=== PATIENT | female | born 1965 | race Caucasian/White ===

== ENCOUNTER 2016-12-19 08:31 | Day surgery (SDC) | payer BC ==
[~2016-12-19 08:31] MED LIST: Lactated Ringers 1,000 ML IV SCH; Lidocaine 2% 5 ML SDV ONE; Midazolam 1 MG/ML 2 ML SDV ONE; Ondansetron 4 MG/2 ML SDV ONE; Propofol 200 MG/20 ML SDV ONE; fentaNYL 100 MCG/2 ML SDV ONE
[2016-12-19] MEDS ORDERED: Propofol 200 MG/20 ML SDV ONE ×2 (09:34→10:28)
--- NOTE | 2016-12-19 09:35 | PCM.PREANE ---
Preanesthetic Assessment - Anesthesia/Transfusion/Family Hx Anesthesia History: Prior Anesthesia Without Reaction Family History of Anesthesia Reaction: No Transfusion History: No Prior Transfusion(s) Intubation History: Unknown - Review of Systems General: No Symptoms Pulmonary: No Symptoms Cardiovascular: No Symptoms Gastrointestinal: No Symptoms Neurological: No Symptoms Other: Reports: None - Physical Assessment Height: 1.75 m Weight: 104.326 kg ASA Class: 2 Mental Status: Alert & Oriented x3 Airway Class: Mallampati = 2 Dentition: Reports: Dentures (upper), Missing Tooth/Teeth (only 5 teeth left in lower jaw) Thyro-Mental Finger Breadths: 3 Mouth Opening Finger Breadths: 3 ROM/Head Extension: Full Lungs: Clear to Auscultation, Normal Respiratory Effort Cardiovascular: Regular Rate, Regular Rhythm - Allergies Allergies/Adverse Reactions: Allergies Allergy/AdvReac Type Severity Reaction Status Date / Time Penicillins Allergy Hives Verified 11/04/14 09:50 - Blood Blood Available: No - Anesthesia Plan Pre-Op Medication Ordered: None - Acknowledgements Anesthesia Type Planned: MAC Pt an Appropriate Candidate for the Planned Anesthesia: Yes Alternatives and Risks of Anesthesia Discussed w Pt/Guardian: Yes Pt/Guardian Understands and Agrees with Anesthesia Plan: Yes PreAnesthesia Questionnaire HEENT History: Other HEENT History: top denture Gastrointestinal History: Reports: Diverticulosis (with h/o diverticulitis) Genitourinary History: Reports: Renal Calculus 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: Musculoskeletal History: Reports: Arthritis (back, hips and now starting on hands), Back Pain, Chronic Neurological History: Reports: Concussion Psychiatric History: Reports: Anxiety Endocrine/Metabolic History: Reports: Obesity/BMI 30+ - Past Surgical History Head Surgeries/Procedures: Reports: None HEENT Surgical History: Reports: Tonsillectomy Female Surgical History: Reports: Hysterectomy, Tubal Ligation - SUBSTANCE USE Smoking Status *Q: Current Every Day Smoker (1/2 ppd now) Tobacco Use Within Last Twelve Months: Cigarettes Recreational Drug Use History: No - HOME MEDS Home Medications: Home Meds Chrom Digna/Brindal Kemp [Garcinia Cambogia Tablet] 3 tab PO DAILY 12/12/16 [ History] Naproxen Sodium [Aleve] 2 tab PO ASDIRECTED PRN 12/12/16 [History] - CURRENT (IN HOUSE) MEDS Current Meds: Current Medications Lactated Ringer's (Ringers, Lactated) 1,000 mls @ 125 mls/hr IV ASDIRECTED JD Discontinued Medications Fentanyl (Sublimaze) Confirm Administered Dose 200 mcg .ROUTE .STK-MED ONE Stop: 12/19/16 07:00 Lidocaine (Xylocaine-Mpf 2%) Confirm Administered Dose 5 ml .ROUTE .STK-MED ONE Stop: 12/19/16 07:00 Midazolam HCl (Versed 1 Mg/Ml) Confirm Administered Dose 2 mg .ROUTE .STK-MED ONE Stop: 12/19/16 07:00 Ondansetron HCl (Zofran) Confirm Administered Dose 4 mg .ROUTE .STK-MED ONE Stop: 12/19/16 07:00 Propofol (Diprivan 20 Ml) Confirm Administered Dose 200 mg .ROUTE .STK-MED ONE Stop: 12/19/16 07:00
[2016-12-19] MEDS ORDERED: Lidocaine 1% 20 ML MDV ONE (10:03)
--- NOTE | 2016-12-19 10:54 | PCM.OPNOTE ---
- General Post-Op/Procedure Note Date of Surgery/Procedure: 12/19/16 Operative Procedure(s): Excision 2 cm left anterior chest wall mass with layered 4 cm closure Pre Op Diagnosis: Chest wall mass Post-Op Diagnosis: Same Anesthesia Technique: Local, MAC (ASA II) Primary Surgeon: Phan Hurst Hvac Manager: Darlin Morales Condition: Good Free Text/Narrative:: Dictation [id number]
[2016-12-19] MEDS ORDERED: Lactated Ringers 1,000 ML IV SCH (11:00)
[2016-12-19] MEDS: fentaNYL 100 MCG/2 ML SDV ONE ×2 (11:05→11:10)
--- NOTE | 2016-12-19 11:26 | PCM.POSTAN ---
POST ANESTHESIA ASSESSMENT - MENTAL STATUS Mental Status: Alert, Oriented - RESPIRATORY Respiratory Status: Respiratory Rate WNL, Airway Patent, O2 Saturation Stable - CARDIOVASCULAR CV Status: Pulse Rate WNL, Blood Pressure Stable - GASTROINTESTINAL GI Status: No Symptoms - PAIN Pain Score: 5 - POST OP HYDRATION Hydration Status: Adequate & Stable - OBSERVATIONS Free Text/Narrative:: no anesthesia problems
--- NOTE | 2016-12-19 13:14 | OR ---
SURGEON: Phan Hurst M.D. DATE OF PROCEDURE: 12/19/2016 OPERATION PERFORMED: Excision of 2 cm left anterior chest wall mass with layered 4 cm closure. 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 PREOPERATIVE DIAGNOSIS: Enlarging left anterior chest wall mass. POSTOPERATIVE DIAGNOSIS: Enlarging left anterior chest wall mass. ESTIMATED BLOOD LOSS: 2 mL. INTRAOPERATIVE FLUID REPLACEMENT: 700 mL of crystalloid. ASA CLASSIFICATION: II. DESCRIPTION OF PROCEDURE: The patient was taken to the operating room and placed on the operating table in the supine position. Time-out was called for appropriate identification of the patient and procedure. Monitored anesthesia care was provided. The left chest was prepped with DuraPrep solution. Sterile drapes were applied. The skin around the mass, which had been marked prior to the patient entering the operating room was now infiltrated with 1% Xylocaine and 0.5% Marcaine solution. Elliptical skin incision was made and then using electrocautery the mass was circumferentially excised. Bleeding sites were electrocoagulated. The total length of the incision was 4 cm. Layered closure was accomplished with subcutaneous layer of 3-0 Polysorb and subcuticular 4-0 Monocryl in a subcuticular fashion. The incision was then Steri-Stripped. Sponge, needle, and instrument counts were all correct. The patient tolerated the procedure well and was taken to recovery room in stable condition. The incision was also dressed with a sterile Tegaderm pad. ROSARIO RHODES /[id number]
[2016-12-19 13:59] VITALS: BP 134/65
== END 2016-12-19 12:00 | disposition home or self-care (01) ==
LOC: MW.SDS 08:31
PROVIDERS: ATTEND Surgery
DX: L72.0 Epidermal cyst (principal); L72.3 Sebaceous cyst; F41.9 Anxiety disorder, unspecified; M19.90 Unspecified osteoarthritis, unspecified site; E66.9 Obesity, unspecified; F17.210 Nicotine dependence, cigarettes, uncomplicated; Z87.440 Personal history of urinary (tract) infections; Z87.442 Personal history of urinary calculi; Z88.0 Allergy status to penicillin; Z79.899 Other long term (current) drug therapy; Z98.51 Tubal ligation status; Z90.710 Acquired absence of both cervix and uterus; Z90.89 Acquired absence of other organs; Z68.32 Body mass index [BMI] 32.0-32.9, adult
CPT/HCPCS: 11402; 12032; 88304; J2250; J3010; J7120; 00470; J2405; J2704

== ENCOUNTER 2017-11-30 14:22 | Emergency (ER) | payer BC ==
[2017-11-30 14:36] VITALS: BP 180/81
[2017-11-30] MEDS ORDERED: Sodium Chloride 0.9% 1,000 ML IV ONE (14:49)
[2017-11-30] MEDS ORDERED: Ondansetron 4 MG/2 ML SDV IVPUSH ONE (14:49)
[2017-11-30] MEDS ORDERED: Sodium Chloride 0.9% 2.5 ML Syringe FLUSH PRN (14:49)
[2017-11-30] MEDS ORDERED: Sodium Chloride 0.9% 10 ML Syringe FLUSH PRN (14:49)
--- NOTE | 2017-11-30 14:49 | EDM.PDOC ---
ED HPI GENERAL MEDICAL PROBLEM - General Chief Complaint: General Stated Complaint: DEHYDRATED Time Seen by Provider: 11/30/17 14:30 Source of Information: Reports: Patient History Limitations: Reports: No Limitations - History of Present Illness INITIAL COMMENTS - FREE TEXT/NARRATIVE: History of present illness: []Patient has a history of lymphadenopathy is currently being worked up and has a scheduled biopsy in 2 days. She states she is unable to keep any food down as it get stuck in her neck level, she is able to keep fluids down however. Patient denies any difficulty breathing or feeling short of breath. She is also complaining of uncontrolled pain. Review of systems: As per history of present illness and below otherwise all systems reviewed and negative. Past medical history: As per history of present illness and as reviewed below otherwise noncontributory. Surgical history: As per history of present illness and as reviewed below otherwise noncontributory. Social history: No reported history of drug or alcohol abuse. Family history: As per history of present illness and as reviewed below otherwise noncontributory. Physical exam: General: Well developed, well nourished in NAD HEENT: Atraumatic, normocephalic, pupils reactive, negative for conjunctival pallor or scleral icterus, mucous membranes moist, throat clear, neck supple, nontender, trachea midline. Visible left supraclavicular lymphadenopathy Lungs: Clear to auscultation, breath sounds equal bilaterally, chest nontender. Upper back tender cloth printing to palpation Heart: S1S2, regular, negative for clicks, rubs, or JVD. Abdomen: Soft, nondistended, nontender. Negative for masses or hepatosplenomegaly. Negative for costovertebral tenderness. Pelvis: Stable nontender. Genitourinary: Deferred. Rectal: Deferred. Extremities: Atraumatic, negative for cords or calf pain. Neurovascular unremarkable. Neuro: Awake, alert, oriented. Cranial nerves II through XII unremarkable. Cerebellum unremarkable. Motor and sensory unremarkable throughout. Exam nonfocal. Skin:warm and dry Diagnostics: None Therapeutics: IV hydration, morphine with improvement in symptoms ED Course: Patient was able to tolerate fluids without difficulty and is comfortable going home Impression: Lymphadenopathy, patient scheduled for outpatient biopsy in 2 days Prescriptions: Tramadol for pain, Prevacid suspension daily Plan: Keep appointment for biopsy.as scheduled. Return to ER immediately if any worsening symptoms occur such as an ability to swallow, difficulty breathing or shortness of breath. Definitive disposition and diagnosis as appropriate pending reevaluation and review of above. headache Pain Score (Numeric/FACES): 10 - Related Data Allergies Allergy/AdvReac Type Severity Reaction Status Date / Time Penicillins Allergy Hives Verified 11/30/17 14:29 Home Meds: Home Meds Acetaminophen [Tylenol Solution 160 MG/5 ML] 15 ml PO Q4HR 11/30/17 [History] Lansoprazole [Prevacid] 30 mg PO DAILY #30 capsule. 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: Musculoskeletal History: Reports: Arthritis, Back Pain, Chronic Neurological History: Reports: Concussion Psychiatric History: Reports: Anxiety Endocrine/Metabolic History: Reports: Obesity/BMI 30+ Hematologic History: Reports: None Immunologic History: Reports: None Oncologic (Cancer) History: Reports: None Dermatologic History: Reports: None - Past Surgical History Head Surgeries/Procedures: Reports: None HEENT Surgical History: Reports: Tonsillectomy Cardiovascular Surgical History: Reports: None Respiratory Surgical History: Reports: None GI Surgical History: Reports: None Female Surgical History: Reports: Hysterectomy, Tubal Ligation Endocrine Surgical History: Reports: None Neurological Surgical History: Reports: None Musculoskeletal Surgical History: Reports: None Oncologic Surgical History: Reports: None Dermatological Surgical History: Reports: None Social & Family History - Family History Family Medical History: Noncontributory - Tobacco Use Smoking Status *Q: Current Every Day Smoker Years of Tobacco use: 40 Packs/Tins Daily: 0.5 - Caffeine Use Caffeine Use: Reports: None - Recreational Drug Use Recreational Drug Use: No ED ROS GENERAL - Review of Systems Review Of Systems: ROS reveals no pertinent complaints other than HPI. ED EXAM, GENERAL - Physical Exam Exam: See Below (See history of present illness) Course - Vital Signs Last Recorded V/S: Last Vital Signs Temp 96.4 F 11/30/17 14:32 Pulse 76 11/30/17 14:32 Resp 18 11/30/17 14:32 BP 180/81 H 11/30/17 14:32 Pulse Ox 94 L 11/30/17 14:32 - Orders/Labs/Meds Orders: Active Orders 24 hr Category Date Time Status Saline Lock Insert [OM.PC] Stat Oth 11/30/17 14:49 Ordered Meds: Medications Discontinued Medications Generic Name Dose Route Start Last Admin Trade Name Freq PRN Reason Stop Dose Admin Sodium Chloride 1,000 mls @ 999 mls/hr 11/30/17 14:49 11/30/17 15:10 Normal Saline IV 11/30/17 15:49 999 mls/hr .Bolus ONE Administration Morphine Sulfate 2 mg 11/30/17 15:47 11/30/17 15:51 Morphine IVPUSH 11/30/17 15:48 2 mg ONETIME ONE Administration Morphine Sulfate 2 mg 11/30/17 15:47 11/30/17 15:51 Morphine IVPUSH 11/30/17 15:48 2 mg ONETIME ONE Administration Ondansetron HCl 4 mg 11/30/17 14:49 11/30/17 15:10 Zofran IVPUSH 11/30/17 14:50 4 mg ONETIME ONE Administration Sodium Chloride 10 ml 11/30/17 14:49 Saline Flush FLUSH ASDIRECTED PRN Keep Vein Open Sodium Chloride 2.5 ml 11/30/17 14:49 Saline Flush FLUSH ASDIRECTED PRN Keep Vein Open Departure - Departure Time of Disposition: 16:19 Disposition: Home, Self-Care 01 Condition: Good Clinical Impression: Neck mass - Discharge Information *PRESCRIPTION DRUG MONITORING PROGRAM REVIEWED*: No Prescriptions: Lansoprazole [Prevacid] 30 mg PO DAILY #30 capsule. traMADol HCl [Tramadol HCl] 50 mg PO Q6H PRN #16 tablet PRN Reason: Pain Instructions: Lymphadenopathy Referrals: Brenda Cabrera MD [Primary Care Provider] - Forms: ED Department Discharge Additional Instructions: The following information is given to patients seen in the emergency department who are being discharged to home. This information is to outline your options for follow-up care. We provide all patients seen in our emergency department with a follow-up referral. The need for follow-up, as well as the timing and circumstances, are variable depending upon the specifics of your emergency department visit. If you don't have a primary care physician on staff, we will provide you with a referral. We always advise you to contact your personal physician following an emergency department visit to inform them of the circumstance of the visit and for follow-up with them and/or the need for any referrals to a consulting specialist. The emergency department will also refer you to a specialist when appropriate. This referral assures that you have the opportunity for follow-up care with a specialist. All of these measure are taken in an effort to provide you with optimal care, which includes your follow-up. Under all circumstances we always encourage you to contact your private physician who remains a resource for coordinating your care. When calling for follow-up care, please make the office aware that this follow-up is from your recent emergency room visit. If for any reason you are refused follow-up, please contact the [facility] Emergency Department at and asked to speak to the emergency department charge nurse. [facility] [address] [place] [id number] - My Orders Last 24 Hours: My Active Orders 11/30/17 14:49 Saline Lock Insert [OM.PC] Stat - Assessment/Plan Last 24 Hours: My Active Orders 11/30/17 14:49 Saline Lock Insert [OM.PC] Stat
[2017-11-30] MEDS ORDERED: Morphine 4 MG/ML Syringe IVPUSH ONE (15:44)
[2017-11-30] MEDS ORDERED: Morphine 2 MG/ML Syringe IVPUSH ONE ×2 (15:47)
== END 2017-11-30 16:37 | disposition home or self-care (01) ==
LOC: MW.ED 14:22
DX: R22.1 Localized swelling, mass and lump, neck (principal); F17.210 Nicotine dependence, cigarettes, uncomplicated; Z79.899 Other long term (current) drug therapy
CPT/HCPCS: 96361; 96374; 96375; 99284; J2270; J2405; J7040; 99283

== ENCOUNTER 2017-12-21 12:21 | Inpatient (IN) | payer BC ==
[2017-12-21] MEDS ORDERED: Sodium Chloride 0.9% 10 ML Syringe FLUSH PRN (12:33)
[2017-12-21] MEDS ORDERED: Sodium Chloride 0.9% 2.5 ML Syringe FLUSH PRN (12:33)
--- NOTE | 2017-12-21 12:35 | EDM.PDOC ---
ED HPI GENERAL MEDICAL PROBLEM - General Chief Complaint: Respiratory Problem Stated Complaint: SOB Time Seen by Provider: 12/21/17 12:34 Source of Information: Reports: Patient History Limitations: Reports: No Limitations - History of Present Illness INITIAL COMMENTS - FREE TEXT/NARRATIVE: HISTORY AND PHYSICAL: History of present illness: Patient is a 52-year-old female with recently diagnosed lung cancer here for shortness of breath. 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 She states that last night she had worsening shortness of breath, cough, fever and chills. Patient came in 79% on room air which improved to 94% with 15 L nonrebreather. She denies any chest pain, dizziness, nausea, vomiting, diarrhea. Patient states she starts chemotherapy this coming Saturday at [facility]. Patient is DNR. Review of systems: As per history of present illness and below otherwise all systems reviewed and negative. Past medical history: As per history of present illness and as reviewed below otherwise noncontributory. Surgical history: As per history of present illness and as reviewed below otherwise noncontributory. Social history: No reported history of drug or alcohol abuse. Family history: As per history of present illness and as reviewed below otherwise noncontributory. Physical exam: General: Patient sitting up in exam bed alert on nonrebeather HEENT: Mucous membranes are dry. Atraumatic, normocephalic, pupils reactive, negative for conjunctival pallor or scleral icterus, throat clear, neck supple , nontender, trachea midline. No meningeal signs. Lungs: Coarse rhonchi throughout all lung duron, breath sounds equal bilaterally, chest nontender. Heart: S1S2, regular, negative for clicks, rubs, or overt murmur. No peripheral edema. Abdomen: Soft, nondistended, nontender. Negative for masses or hepatosplenomegaly. Negative for costovertebral tenderness. Pelvis: Stable nontender. Genitourinary: Deferred. Rectal: Deferred. Extremities: Atraumatic, negative for cords or calf pain. Neurovascular unremarkable. Neuro: Awake, alert, oriented. Cranial nerves II through XII unremarkable. Cerebellum unremarkable. Motor and sensory unremarkable throughout. Exam nonfocal. Notes: Diagnostics: CBC, CMP, Troponin, BNP, Lactate, blood culture x 2, UA Chest x-ray Therapeutics: 15L O2 Nonrebeather Impression: Pneumonia Left pleural effusion Hypoxia Plan: Discussed with Dr. Carmichael, patient will be admitted for IV antibiotics. Definitive disposition and diagnosis as appropriate pending reevaluation and review of above. back Pain Score (Numeric/FACES): 5 - Related Data Allergies Allergy/AdvReac Type Severity Reaction Status Date / Time Penicillins Allergy Hives Verified 12/21/17 12:30 Home Meds: Home Meds Acetaminophen [Tylenol Solution 160 MG/5 ML] 15 ml PO Q4HR 11/30/17 [History] Lansoprazole [Prevacid] 30 mg PO DAILY #30 capsule. 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: Musculoskeletal History: Reports: Arthritis, Back Pain, Chronic Neurological History: Reports: Concussion Psychiatric History: Reports: Anxiety Endocrine/Metabolic History: Reports: Obesity/BMI 30+ Hematologic History: Reports: None Immunologic History: Reports: None Oncologic (Cancer) History: Reports: None Dermatologic History: Reports: None - Past Surgical History Head Surgeries/Procedures: Reports: None HEENT Surgical History: Reports: Tonsillectomy Cardiovascular Surgical History: Reports: None Respiratory Surgical History: Reports: None GI Surgical History: Reports: None Female Surgical History: Reports: Hysterectomy, Tubal Ligation Endocrine Surgical History: Reports: None Neurological Surgical History: Reports: None Musculoskeletal Surgical History: Reports: None Oncologic Surgical History: Reports: None Dermatological Surgical History: Reports: None Social & Family History - Family History Family Medical History: Noncontributory - Caffeine Use Caffeine Use: Reports: None ED ROS GENERAL - Review of Systems Review Of Systems: ROS reveals no pertinent complaints other than HPI. ED EXAM, GENERAL - Physical Exam Exam: See Below (see dictation) Course - Vital Signs Last Recorded V/S: Last Vital Signs Temp 36.9 C 12/21/17 12:30 Pulse 102 H 12/21/17 13:33 Resp 18 12/21/17 13:33 BP 139/71 12/21/17 13:33 Pulse Ox 93 L 12/21/17 13:33 - Orders/Labs/Meds Orders: Active Orders 24 hr Category Date Time Status EKG 12 Lead [EKG Documentation Completion] [] STAT Care 12/21/17 12:34 Active Oxygen Therapy, ED [RC] ASDIRECTED Care 12/21/17 12:33 Active Chest 1V Frontal [CR] Stat Exams 12/21/17 12:34 Taken CULTURE BLOOD [BC] Stat Lab 12/21/17 12:40 Received CULTURE BLOOD [BC] Stat Lab 12/21/17 13:26 Ordered UA W/MICROSCOPIC [URIN] Stat Lab 12/21/17 12:34 Ordered Sodium Chloride 0.9% [Normal Saline] 1,000 ml Med 12/21/17 12:37 Active IV STAT Sodium Chloride 0.9% [Saline Flush] Med 12/21/17 12:33 Active 10 ml FLUSH ASDIRECTED PRN Sodium Chloride 0.9% [Saline Flush] Med 12/21/17 12:33 Active 2.5 ml FLUSH ASDIRECTED PRN Blood Culture x2 Reflex Set [OM.PC] Stat Oth 12/21/17 13:26 Ordered Saline Lock Insert [OM.PC] Stat Oth 12/21/17 12:33 Ordered Medication Orders Sodium Chloride (Normal Saline) 1,000 mls @ 999 mls/hr IV STAT ONE Stop: 12/21/17 13:37 Last Admin: 12/21/17 12:43 Dose: 999 mls/hr Sodium Chloride (Saline Flush) 10 ml FLUSH ASDIRECTED PRN PRN Reason: Keep Vein Open Last Admin: 12/21/17 12:43 Dose: 10 ml Sodium Chloride (Saline Flush) 2.5 ml FLUSH ASDIRECTED PRN PRN Reason: Keep Vein Open Last Admin: 12/21/17 12:43 Dose: 2.5 ml Labs: Laboratory Tests 12/21/17 12/21/17 12/21/17 Range/Units 12:40 12:40 12:40 WBC 11.54 H (4.0-11.0) K/uL RBC 5.16 (4.30-5.90) M/uL Hgb 14.4 (12.0-16.0) g/dL Hct 43.8 (36.0-46.0) % MCV 84.9 (80.0-98.0) fL MCH 27.9 (27.0-32.0) pg MCHC 32.9 (31.0-37.0) g/dL RDW Std Deviation 46.1 (28.0-62.0) fl RDW Coeff of Laya 15 (11.0-15.0) % Plt Count 287 (150-400) K/uL MPV 10.50 (7.40-12.00) fL Neut % (Auto) 79.8 (48.0-80.0) % Lymph % (Auto) 11.2 L (16.0-40.0) % Calhoun % (Auto) 7.9 (0.0-15.0) % Eos % (Auto) 0.9 (0.0-7.0) % Baso % (Auto) 0.2 (0.0-1.5) % Neut # (Auto) 9.2 H (1.4-5.7) K/uL Lymph # (Auto) 1.3 (0.6-2.4) K/uL Calhoun # (Auto) 0.9 H (0.0-0.8) K/uL Eos # (Auto) 0.1 (0.0-0.7) K/uL Baso # (Auto) 0.0 (0.0-0.1) K/uL Nucleated RBC % 0.0 /100WBC Nucleated RBCs # 0 K/uL Lactate (0.20-2.00) mmol/L Sodium 135 L (136-145) mmol/L Potassium 4.1 (3.5-5.1) mmol/L Chloride 99 (98-107) mmol/L Carbon Dioxide 29.4 (21.0-32.0) mmol/L BUN 9 (7.0-18.0) mg/dL Creatinine 0.7 (0.6-1.0) mg/dL Est Cr Clr Drug Dosing 87.01 mL/min Estimated GFR (MDRD) > 60.0 ml/min Glucose 115 H (74-106) mg/dL Calcium 9.7 (8.5-10.1) mg/dL Total Bilirubin 0.8 (0.2-1.0) mg/dL AST 20 (15-37) IU/L ALT 20 (14-63) IU/L Alkaline Phosphatase 112 (46-116) U/L Troponin I < 0.050 (0.000-0.056) ng/mL B-Natriuretic Peptide 61 (<100) PG/ML Total Protein 7.4 (6.4-8.2) g/dL Albumin 3.0 L (3.4-5.0) g/dL Globulin 4.4 H (2.0-3.5) g/dL Albumin/Globulin Ratio 0.7 L (1.3-2.8) Lipase 73 (73-393) U/L 12/21/17 Range/Units 12:40 WBC (4.0-11.0) K/uL RBC (4.30-5.90) M/uL Hgb (12.0-16.0) g/dL Hct (36.0-46.0) % MCV (80.0-98.0) fL MCH (27.0-32.0) pg MCHC (31.0-37.0) g/dL RDW Std Deviation (28.0-62.0) fl RDW Coeff of Laya (11.0-15.0) % Plt Count (150-400) K/uL MPV (7.40-12.00) fL Neut % (Auto) (48.0-80.0) % Lymph % (Auto) (16.0-40.0) % Calhoun % (Auto) (0.0-15.0) % Eos % (Auto) (0.0-7.0) % Baso % (Auto) (0.0-1.5) % Neut # (Auto) (1.4-5.7) K/uL Lymph # (Auto) (0.6-2.4) K/uL Calhoun # (Auto) (0.0-0.8) K/uL Eos # (Auto) (0.0-0.7) K/uL Baso # (Auto) (0.0-0.1) K/uL Nucleated RBC % /100WBC Nucleated RBCs # K/uL Lactate 1.3 (0.20-2.00) mmol/L Sodium (136-145) mmol/L Potassium (3.5-5.1) mmol/L Chloride (98-107) mmol/L Carbon Dioxide (21.0-32.0) mmol/L BUN (7.0-18.0) mg/dL Creatinine (0.6-1.0) mg/dL Est Cr Clr Drug Dosing mL/min Estimated GFR (MDRD) ml/min Glucose (74-106) mg/dL Calcium (8.5-10.1) mg/dL Total Bilirubin (0.2-1.0) mg/dL AST (15-37) IU/L ALT (14-63) IU/L Alkaline Phosphatase (46-116) U/L Troponin I (0.000-0.056) ng/mL B-Natriuretic Peptide (<100) PG/ML Total Protein (6.4-8.2) g/dL Albumin (3.4-5.0) g/dL Globulin (2.0-3.5) g/dL Albumin/Globulin Ratio (1.3-2.8) Lipase (73-393) U/L Meds: Medications Generic Name Dose Route Start Last Admin Trade Name Freq PRN Reason Stop Dose Admin Sodium Chloride 1,000 mls @ 999 mls/hr 12/21/17 12:37 12/21/17 12:43 Normal Saline IV 12/21/17 13:37 999 mls/hr STAT ONE Administration Sodium Chloride 10 ml 12/21/17 12:33 12/21/17 12:43 Saline Flush FLUSH 10 ml ASDIRECTED PRN Administration Keep Vein Open Sodium Chloride 2.5 ml 12/21/17 12:33 12/21/17 12:43 Saline Flush FLUSH 2.5 ml ASDIRECTED PRN Administration Keep Vein Open Departure - Departure Time of Disposition: 13:39 Disposition: Refer to Observation Condition: Good Clinical Impression: Pneumonia, Hypoxia, Pleural effusion - Discharge Information Forms: ED Department Discharge - My Orders Last 24 Hours: My Active Orders 12/21/17 12:33 Oxygen Therapy, ED [RC] ASDIRECTED Sodium Chloride 0.9% [Saline Flush] 10 ml FLUSH ASDIRECTED PRN Sodium Chloride 0.9% [Saline Flush] 2.5 ml FLUSH ASDIRECTED PRN Saline Lock Insert [OM.PC] Stat 12/21/17 12:34 EKG 12 Lead [EKG Documentation Completion] [RC] STAT Chest 1V Frontal [CR] Stat UA W/MICROSCOPIC [URIN] Stat 12/21/17 12:37 Sodium Chloride 0.9% [Normal Saline] 1,000 ml IV STAT - Assessment/Plan Last 24 Hours: My Active Orders 12/21/17 12:33 Oxygen Therapy, ED [RC] ASDIRECTED Sodium Chloride 0.9% [Saline Flush] 10 ml FLUSH ASDIRECTED PRN Sodium Chloride 0.9% [Saline Flush] 2.5 ml FLUSH ASDIRECTED PRN Saline Lock Insert [OM.PC] Stat 12/21/17 12:34 EKG 12 Lead [EKG Documentation Completion] [RC] STAT Chest 1V Frontal [CR] Stat UA W/MICROSCOPIC [URIN] Stat 12/21/17 12:37 Sodium Chloride 0.9% [Normal Saline] 1,000 ml IV STAT
[2017-12-21] MEDS ORDERED: Sodium Chloride 0.9% 1,000 ML IV ONE (12:37)
[2017-12-21 13:12] LABS: CHLORIDE,CL 99 mmol/L (98-107); SODIUM,NA 135 mmol/L (136-145)
[2017-12-21] MEDS ORDERED: Levofloxacin/Dextrose 5%-Water 750 MG in Premix Bag 1 BAG IV ONE (13:37)
[2017-12-21] MEDS ORDERED: Albuterol/Ipratropium 3.0-0.5 MG/3 ML Neb Soln NEB ONE (13:37)
[2017-12-21] MEDS ORDERED: traMADol 50 MG Tab PO PRN (13:41)
[2017-12-21] MEDS ORDERED: Docusate Sodium 100 MG Cap PO PRN ×2 (13:42→14:55)
[2017-12-21] MEDS ORDERED: Morphine 10 MG/ML Syringe IVPUSH PRN (13:42)
[2017-12-21] MEDS ORDERED: Acetaminophen 325 MG Tab PO PRN (13:42)
[2017-12-21] MEDS ORDERED: Albuterol/Ipratropium 3.0-0.5 MG/3 ML Neb Soln NEB PRN (13:42)
[2017-12-21] MEDS ORDERED: oxyCODONE 5 MG Tab PO PRN ×3 (13:42→16:09)
[2017-12-21] MEDS ORDERED: Enoxaparin 40 MG/0.4 ML Syringe SUBCUT SCH (13:45)
[2017-12-21] MEDS: methylPREDNISolone Sodium Succinate 40 MG/1 ML SDV IVPUSH SCH ×2 (14:01→20:06)
[2017-12-21] MEDS ORDERED: guaiFENesin 100 MG/5 ML Soln 10 ML UD Cup PO PRN (14:55)
[2017-12-21] MEDS ORDERED: ACETAMINOPHEN PO SCH (16:00)
[2017-12-21] MEDS ORDERED: oxyCODONE 5 MG Tab PO ONE (16:29)
--- NOTE | 2017-12-21 16:42 | PCM.HP ---
H&P History of Present Illness - General Date of Service: 12/21/17 Admit Problem/Dx: Admission Diagnosis/Problem Admission Diagnosis/Problem Pneumonia Source of Information: Patient History Limitations: Reports: No Limitations - History of Present Illness Initial Comments - Free Text/Narative: Patient 52 y old female diagnosed with metastatic small cell lung cancer 2 weeks ago presented to hospital today due to increase SOB , fever , chills for the past 4-5 days and cough productive of yellow green phlegm,wheezing . Patient currently is still smoking , she smoked 1/2 PPD for the past 40 y. Patient says she lost 100lbs for the past 8 months. .She has a tenderness and swelling rt side of the back and supraclavicular fossa left. Her cancer is spred to the bones and supraadrenal glands.She has severe pain in the back , currently she is on oxycodone 15 mg po q 3-4 h . At arrival in ER patient O2 sat. was 78 % and patient was placed on non rebreathable mask. At arrival on the floor she was on 5 L NC saturating 92%.CXR showed LLL infiltrate and effusions. Saw doctor Doll and is supposed to start her first round of chemotherapy . Onset of Symptoms: Reports: Gradual Location: Reports: Chest back Pain Score (Numeric/FACES): 5 - Related Data Allergies/Adverse Reactions: Allergies Allergy/AdvReac Type Severity Reaction Status Date / Time Penicillins Allergy Hives Verified 12/21/17 15:42 Home Medications: Home Meds Albuterol/Ipratropium [Combivent Respimat] 2 puff INH Q6HR 12/21/17 [History] oxyCODONE HCl [oxyCODONE] 15 mg PO Q3HR PRN 12/21/17 [History] Past Medical History HEENT History: Reports: Other (See Below) Other HEENT History: top denture Cardiovascular History: Reports: None Respiratory History: Reports: None Gastrointestinal History: Reports: Diverticulosis Genitourinary History: Reports: Renal Calculus WOUND CARE PHYSICIAN History: Reports: Musculoskeletal History: Reports: Arthritis, Back Pain, Chronic Neurological History: Reports: Concussion Psychiatric History: Reports: Anxiety Endocrine/Metabolic History: Reports: Obesity/BMI 30+ Hematologic History: Reports: None Immunologic History: Reports: None Oncologic (Cancer) History: Reports: None Dermatologic History: Reports: None - Past Surgical History Head Surgeries/Procedures: Reports: None HEENT Surgical History: Reports: Tonsillectomy Cardiovascular Surgical History: Reports: None Respiratory Surgical History: Reports: None GI Surgical History: Reports: None Female Surgical History: Reports: Hysterectomy, Tubal Ligation Endocrine Surgical History: Reports: None Neurological Surgical History: Reports: None Musculoskeletal Surgical History: Reports: None Oncologic Surgical History: Reports: None Dermatological Surgical History: Reports: None Social & Family History - Family History Family Medical History: Noncontributory - Tobacco Use Smoking Status *Q: Current Every Day Smoker Years of Tobacco use: 40 Packs/Tins Daily: 0.5 Second Hand Smoke Exposure: Yes - Caffeine Use Caffeine Use: Reports: None - Recreational Drug Use Recreational Drug Use: No H&P Review of Systems - Review of Systems: Review Of Systems: See Below General: Reports: Fever, Chills, Malaise, Fatigue, Decreased Appetite, Weight Loss HEENT: Reports: No Symptoms Pulmonary: Reports: Shortness of Breath, Wheezing, Cough, Sputum Cardiovascular: Reports: No Symptoms Gastrointestinal: Reports: No Symptoms Genitourinary: Reports: No Symptoms Musculoskeletal: Reports: Back Pain Skin: Reports: Bruising Neurological: Reports: No Symptoms Hematologic/Lymphatic: Reports: No Symptoms Immunologic: Reports: No Symptoms Exam - Exam Exam: See Below - Vital Signs Vital Signs: Last Vital Signs Temp 99.5 F 12/21/17 14:38 Pulse 105 H 12/21/17 14:17 Resp 18 12/21/17 14:38 BP 140/76 12/21/17 14:38 Pulse Ox 90 L 12/21/17 14:38 Weight: 183 lb 13.848 oz - Exam General: Alert, Oriented, Cooperative HEENT: Conjunctiva Clear, EACs Clear Neck: Supple. No: Thyromegaly Lungs: Decreased Breath Sounds, Crackles, Rhonchi, Wheezing, Other (left supraclavicular fossa lymph node) Cardiovascular: Regular Rate, Regular Rhythm, Normal S1, Normal S2 GI/Abdominal Exam: Normal Bowel Sounds, Soft, Non-Tender, No Organomegaly Back Exam: Normal Inspection Extremities: Normal Inspection Skin: Warm, Dry Neurological: Cranial Nerves Intact Neuro Extensive - Mental Status: Alert, Oriented x3 Neuro Extensive - Motor, Sensory, Reflexes: CN II-XII Intact Psychiatric: Alert, Normal Affect - Patient Data Lab Results Last 24 hrs: Laboratory Results - last 24 hr 12/21/17 12/21/17 12/21/17 Range/Units 12:40 12:40 12:40 WBC 11.54 H (4.0-11.0) K/uL RBC 5.16 (4.30-5.90) M/uL Hgb 14.4 (12.0-16.0) g/dL Hct 43.8 (36.0-46.0) % MCV 84.9 (80.0-98.0) fL MCH 27.9 (27.0-32.0) pg MCHC 32.9 (31.0-37.0) g/dL RDW Std Deviation 46.1 (28.0-62.0) fl RDW Coeff of Laya 15 (11.0-15.0) % Plt Count 287 (150-400) K/uL MPV 10.50 (7.40-12.00) fL Neut % (Auto) 79.8 (48.0-80.0) % Lymph % (Auto) 11.2 L (16.0-40.0) % [place] % (Auto) 7.9 (0.0-15.0) % Eos % (Auto) 0.9 (0.0-7.0) % Baso % (Auto) 0.2 (0.0-1.5) % Neut # (Auto) 9.2 H (1.4-5.7) K/uL Lymph # (Auto) 1.3 (0.6-2.4) K/uL [place] # (Auto) 0.9 H (0.0-0.8) K/uL Eos # (Auto) 0.1 (0.0-0.7) K/uL Baso # (Auto) 0.0 (0.0-0.1) K/uL Nucleated RBC % 0.0 /100WBC Nucleated RBCs # 0 K/uL ABG pH (7.35-7.45) ABG pCO2 (35-45) mmHG ABG pO2 (75-100) mmHG ABG HCO3 (22-26) mEq/L ABG Total CO2 ABG Base Excess (-2.0-2.0) Lactate (0.20-2.00) mmol/L Sodium 135 L (136-145) mmol/L Potassium 4.1 (3.5-5.1) mmol/L Chloride 99 (98-107) mmol/L Carbon Dioxide 29.4 (21.0-32.0) mmol/L BUN 9 (7.0-18.0) mg/dL Creatinine 0.7 (0.6-1.0) mg/dL Est Cr Clr Drug Dosing 87.01 mL/min Estimated GFR (MDRD) > 60.0 ml/min Glucose 115 H (74-106) mg/dL Calcium 9.7 (8.5-10.1) mg/dL Total Bilirubin 0.8 (0.2-1.0) mg/dL AST 20 (15-37) IU/L ALT 20 (14-63) IU/L Alkaline Phosphatase 112 (46-116) U/L Troponin I < 0.050 (0.000-0.056) ng/mL B-Natriuretic Peptide 61 (<100) PG/ML Total Protein 7.4 (6.4-8.2) g/dL Albumin 3.0 L (3.4-5.0) g/dL Globulin 4.4 H (2.0-3.5) g/dL Albumin/Globulin Ratio 0.7 L (1.3-2.8) Lipase 73 (73-393) U/L 12/21/17 12/21/17 Range/Units 12:40 16:20 WBC (4.0-11.0) K/uL RBC (4.30-5.90) M/uL Hgb (12.0-16.0) g/dL Hct (36.0-46.0) % MCV (80.0-98.0) fL MCH (27.0-32.0) pg MCHC (31.0-37.0) g/dL RDW Std Deviation (28.0-62.0) fl RDW Coeff of Laya (11.0-15.0) % Plt Count (150-400) K/uL MPV (7.40-12.00) fL Neut % (Auto) (48.0-80.0) % Lymph % (Auto) (16.0-40.0) % [place] % (Auto) (0.0-15.0) % Eos % (Auto) (0.0-7.0) % Baso % (Auto) (0.0-1.5) % Neut # (Auto) (1.4-5.7) K/uL Lymph # (Auto) (0.6-2.4) K/uL [place] # (Auto) (0.0-0.8) K/uL Eos # (Auto) (0.0-0.7) K/uL Baso # (Auto) (0.0-0.1) K/uL Nucleated RBC % /100WBC Nucleated RBCs # K/uL ABG pH 7.432 (7.35-7.45) ABG pCO2 43 (35-45) mmHG ABG pO2 53 L (75-100) mmHG ABG HCO3 29 H (22-26) mEq/L ABG Total CO2 25.4 ABG Base Excess 3.8 H (-2.0-2.0) Lactate 1.3 (0.20-2.00) mmol/L Sodium (136-145) mmol/L Potassium (3.5-5.1) mmol/L Chloride (98-107) mmol/L Carbon Dioxide (21.0-32.0) mmol/L BUN (7.0-18.0) mg/dL Creatinine (0.6-1.0) mg/dL Est Cr Clr Drug Dosing mL/min Estimated GFR (MDRD) ml/min Glucose (74-106) mg/dL Calcium (8.5-10.1) mg/dL Total Bilirubin (0.2-1.0) mg/dL AST (15-37) IU/L ALT (14-63) IU/L Alkaline Phosphatase (46-116) U/L Troponin I (0.000-0.056) ng/mL B-Natriuretic Peptide (<100) PG/ML Total Protein (6.4-8.2) g/dL Albumin (3.4-5.0) g/dL Globulin (2.0-3.5) g/dL Albumin/Globulin Ratio (1.3-2.8) Lipase (73-393) U/L Result Diagrams: 12/21/17 12:40 12/21/17 12:40 - Problem List (1) Small cell lung cancer in adult SNOMED Code(s): 460782103 ICD Code: C34.90 - MALIGNANT NEOPLASM OF UNSP PART OF UNSP BRONCHUS OR LUNG Status: Acute Current Visit: Yes (2) Pneumonia SNOMED Code(s): 941603238 ICD Code: J18.9 - PNEUMONIA, UNSPECIFIED ORGANISM Status: Acute Current Visit: Yes Qualifiers: Laterality: left Lung location: lower lobe of lung (3) Pleural effusion SNOMED Code(s): 01087342 ICD Code: J90 - PLEURAL EFFUSION, NOT ELSEWHERE CLASSIFIED Status: Acute Current Visit: Yes (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 SNOMED Code(s): 57029342 ICD Code: C77.0 - SEC AND UNSP MALIG NEOPLASM OF NODES OF HEAD, FACE AND NECK Status: Acute Current Visit: Yes (5) Respiratory failure with hypoxia SNOMED Code(s): 41469806310010756 ICD Code: J96.91 - RESPIRATORY FAILURE, UNSPECIFIED WITH HYPOXIA Status: Acute Current Visit: Yes (6) Intractable back pain SNOMED Code(s): 795917979 ICD Code: M54.9 - DORSALGIA, UNSPECIFIED Status: Acute Current Visit: Yes (7) Bone metastasis Status: Acute Current Visit: Yes (8) Metastasis to adrenal gland Status: Acute Current Visit: Yes Problem List Initiated/Reviewed/Updated: Yes Orders Last 24hrs: Active Orders 24 hr Category Date Time Status Admission Status [Patient Status] [ADT] Stat ADT 12/21/17 13:41 Active EKG 12 Lead [EKG Documentation Completion] [RC] STAT Care 12/21/17 12:34 Active Oxygen Therapy [RC] PRN Care 12/21/17 13:43 Active Oxygen Therapy, ED [RC] ASDIRECTED Care 12/21/17 12:33 Active Pulse Oximetry [RC] PRN Care 12/21/17 13:43 Active RT Aerosol Therapy [RC] ASDIRECTED Care 12/21/17 13:48 Active Telemetry Monitoring [Cardiac Monitoring] [RC] . Care 12/21/17 13:50 Active DIRECTED Up ad Lori [RC] ASDIRECTED Care 12/21/17 13:42 Active VTE/DVT Education [RC] PER UNIT ROUTINE Care 12/21/17 13:43 Active Vital Signs [RC] Q4H Care 12/21/17 13:43 Active Chest 1V Frontal [CR] Stat Exams 12/21/17 12:34 Taken CULTURE BLOOD [BC] Stat Lab 12/21/17 12:40 Received CULTURE BLOOD [BC] Stat Lab 12/21/17 13:40 Received CULTURE SPUTUM + SMEAR [RM] Routine Lab 12/21/17 14:46 Ordered UA W/MICROSCOPIC [URIN] Stat Lab 12/21/17 12:34 Ordered Acetaminophen [Tylenol] Med 12/21/17 13:42 Active 650 mg PO Q4H PRN Albuterol/Ipratropium [Combivent Respimat] Med 12/21/17 18:00 Active 1 gm INH Q6HRRT Aztreonam [Azactam] 1 gm Med 12/21/17 17:00 Active Sodium Chloride 0.9% [Normal Saline] 50 ml IV Q8H Budesonide [Pulmicort] Med 12/21/17 21:00 Active 0.5 mg NEB BID Docusate Sodium [Colace] Med 12/21/17 21:00 Active 100 mg PO BID Enoxaparin [Lovenox] Med 12/21/17 13:45 Active 40 mg SUBCUT Q24H Levofloxacin/Dextrose 5%-Water [Levaquin in D5W 750 MG/ Med 12/22/17 16:15 Active 150 ML] 750 mg Premix Bag 1 bag IV Q24H Morphine Med 12/21/17 16:14 Active 2 mg IVPUSH Q2H PRN Sodium Chloride 0.9% [Saline Flush] Med 12/21/17 12:33 Active 10 ml FLUSH ASDIRECTED PRN Sodium Chloride 0.9% [Saline Flush] Med 12/21/17 12:33 Active 2.5 ml FLUSH ASDIRECTED PRN guaiFENesin [Robitussin] Med 12/21/17 14:55 Active 200 mg PO Q6H PRN methylPREDNISolone Sod Succ [Solu-MEDROL] Med 12/21/17 14:00 Active 40 mg IVPUSH Q6H oxyCODONE Med 12/21/17 16:08 Active 15 mg PO Q3HR PRN Blood Culture x2 Reflex Set [OM.PC] Stat Oth 12/21/17 13:26 Ordered Saline Lock Insert [OM.PC] Stat Oth 12/21/17 12:33 Ordered Sequential Compression Device [OM.PC] Per Unit Routine Oth 12/21/17 13:43 Ordered Resuscitation Status Routine Resus Stat 12/21/17 13:42 Ordered Medication Orders Acetaminophen (Tylenol) 650 mg PO Q4H PRN PRN Reason: Pain (Mild 1-3)/fever Albuterol/Ipratropium (Combivent Respimat) 1 gm INH Q6HRRT [facility] Budesonide (Pulmicort) 0.5 mg NEB BID JD Docusate Sodium (Colace) 100 mg PO BID [facility] Enoxaparin Sodium (Lovenox) 40 mg SUBCUT Q24H [facility] Last Admin: 12/21/17 15:27 Dose: 40 mg Guaifenesin (Robitussin) 200 mg PO Q6H PRN PRN Reason: Cough Aztreonam 1 gm/ Sodium (Chloride) 50 mls @ 100 mls/hr IV Q8H [facility] Levofloxacin/Dextrose 750 mg/ (Premix) 150 mls @ 100 mls/hr IV Q24H [facility] Methylprednisolone Sodium Succinate (Solu-Medrol) 40 mg IVPUSH Q6H [facility] Last Admin: 12/21/17 14:01 Dose: 40 mg Morphine Sulfate (Morphine) 2 mg IVPUSH Q2H PRN PRN Reason: Pain (severe 7-10) Stop: 12/22/17 13:44 Oxycodone HCl (Oxycodone) 15 mg PO Q3HR PRN PRN Reason: Pain Sodium Chloride (Saline Flush) 10 ml FLUSH ASDIRECTED PRN PRN Reason: Keep Vein Open Last Admin: 12/21/17 12:43 Dose: 10 ml Sodium Chloride (Saline Flush) 2.5 ml FLUSH ASDIRECTED PRN PRN Reason: Keep Vein Open Last Admin: 12/21/17 12:43 Dose: 2.5 ml Assessment/Plan Comment:: will start patient on broad spectrum antibiotics: levofloxacin , 750 mg iv q 24 h , aztreonam 1 gram iv q 8 h and vancomycin iv pharmacy to dose. O2 on NCtitrate to maintain O2 sat above 90% Pain medication : oxycodone 15 mg po q 3-4 h Colace 100 mg po BID Blood culture , sputum culture Robitussin 200 mg po qid solumedrol 60 mg iv q 6 h duoneb neb treatment , pulmicort 0.5 mg q 12h For left arm swelling - lasix 40 mg iv 1 dose, venous doppler eliquis 5 mg po BID Gi prof:PPI Prognosis poor , should consider comfort measures
[2017-12-21] MEDS ORDERED: Furosemide 40 MG/4 ML VIAL IVPUSH ONE (17:46)
[2017-12-21] MEDS ORDERED: metroNIDAZOLE/Normal Saline 500 MG in Premix Bag 1 BAG IV SCH (18:00)
[2017-12-21] MEDS ORDERED: Albuterol/Ipratropium 4 GM Inhalation Spray INH SCH (18:00)
[2017-12-21] MEDS: Ondansetron 4 MG/2 ML SDV IVPUSH PRN (18:05)
[2017-12-21] MEDS: Morphine 2 MG/ML Syringe IVPUSH PRN ×3 (18:16→23:28)
[2017-12-21] MEDS: Albuterol/Ipratropium 4 GM Inhalation Spray INH SCH ×2 (19:10→23:58)
[2017-12-21] MEDS: Docusate Sodium 100 MG Cap PO SCH (20:03)
[2017-12-21] MEDS: oxyCODONE 5 MG Tab PO PRN ×2 (20:04→23:28)
[2017-12-21] MEDS: Apixaban 5 MG Tab PO SCH (20:04)
[2017-12-21] MEDS: Budesonide 0.5 MG/2 ML Neb Susp NEB SCH (20:09)
[2017-12-21] MEDS ORDERED: Apixaban 5 MG Tab PO SCH (21:00)
[2017-12-22] MEDS: methylPREDNISolone Sodium Succinate 40 MG/1 ML SDV IVPUSH SCH ×4 (01:45→19:53)
[2017-12-22] MEDS: Morphine 2 MG/ML Syringe IVPUSH PRN ×5 (02:31→23:30)
[2017-12-22] MEDS: oxyCODONE 5 MG Tab PO PRN ×3 (04:05→18:15)
[2017-12-22] MEDS: Albuterol/Ipratropium 4 GM Inhalation Spray INH SCH ×4 (07:12→23:34)
[2017-12-22] MEDS: Docusate Sodium 100 MG Cap PO SCH ×2 (08:29→20:00)
[2017-12-22] MEDS: Apixaban 5 MG Tab PO SCH ×2 (08:29→20:01)
[2017-12-22] MEDS ORDERED: PREDNISOLONE PO SCH (09:00)
[2017-12-22] MEDS ORDERED: Non-Formulary Medication 1 Each (Lansoprazole [Prevacid] 30 MG) PO SCH (09:00)
[2017-12-22] MEDS: Budesonide 0.5 MG/2 ML Neb Susp NEB SCH ×2 (09:15→21:12)
[2017-12-22] MEDS ORDERED: Furosemide 40 MG/4 ML VIAL IVPUSH ONE (10:11)
[2017-12-22] MEDS: oxyCODONE ER 10 MG TAB.ER PO SCH ×2 (10:51→20:00)
[2017-12-22] MEDS: Pantoprazole 40 MG Tab.CR PO SCH (10:52)
[2017-12-22 11:09] LABS: CHLORIDE,CL 98 mmol/L (98-107); SODIUM,NA 137 mmol/L (136-145)
[2017-12-22] MEDS ORDERED: Levofloxacin/Dextrose 5%-Water 750 MG in Premix Bag 1 BAG IV ONE (14:40)
--- NOTE | 2017-12-22 15:37 | PCM.PN ---
- General Info Date of Service: 12/22/17 Admission Dx/Problem (Free Text): wheezing improved , O 2 sat improved , requiring today only 3 L nC to maintain her O2 above 90. Says her pain is not controlled Pain Score: 5 - Review of Systems General: Reports: Weakness, Fatigue HEENT: Reports: No Symptoms Pulmonary: Reports: Shortness of Breath, Cough, Sputum, Wheezing Cardiovascular: Reports: Dyspnea on Exertion, Edema Gastrointestinal: Reports: Constipation Genitourinary: Reports: No Symptoms Musculoskeletal: Reports: Back Pain Skin: Reports: No Symptoms Neurological: Reports: No Symptoms Psychiatric: Reports: No Symptoms - Patient Data Vitals - Most Recent: Last Vital Signs Temp 97.4 F 12/22/17 12:00 Pulse 96 12/22/17 12:00 Resp 16 12/22/17 12:00 BP 155/78 H 12/22/17 12:00 Pulse Ox 93 L 12/22/17 12:00 Weight - Most Recent: 183 lb 13.848 oz I&O - Last 24 Hours: Intake & Output 12/22/17 12/22/17 12/22/17 06:59 14:59 22:59 Intake Total 790 50 Output Total 1200 Balance -410 50 Lab Results Last 24 Hours: Laboratory Results - last 24 hr 12/21/17 12/21/17 12/21/17 Range/Units 12:40 16:20 17:05 WBC (4.0-11.0) K/uL RBC (4.30-5.90) M/uL Hgb (12.0-16.0) g/dL Hct (36.0-46.0) % MCV (80.0-98.0) fL MCH (27.0-32.0) pg MCHC (31.0-37.0) g/dL RDW Std Deviation (28.0-62.0) fl RDW Coeff of Laya (11.0-15.0) % Plt Count (150-400) K/uL MPV (7.40-12.00) fL Nucleated RBC % /100WBC Nucleated RBCs # K/uL ABG pH 7.432 (7.35-7.45) ABG pCO2 43 (35-45) mmHG ABG pO2 53 L (75-100) mmHG ABG HCO3 29 H (22-26) mEq/L ABG Total CO2 25.4 ABG Base Excess 3.8 H (-2.0-2.0) Sodium (136-145) mmol/L Potassium (3.5-5.1) mmol/L Chloride (98-107) mmol/L Carbon Dioxide (21.0-32.0) mmol/L BUN (7.0-18.0) mg/dL Creatinine (0.6-1.0) mg/dL Est Cr Clr Drug Dosing mL/min Estimated GFR (MDRD) ml/min Glucose (74-106) mg/dL Calcium (8.5-10.1) mg/dL Phosphorus (2.6-4.7) mg/dL Magnesium (1.8-2.4) mg/dL Total Bilirubin (0.2-1.0) mg/dL AST (15-37) IU/L ALT (14-63) IU/L Alkaline Phosphatase (46-116) U/L B-Natriuretic Peptide 51 (<100) PG/ML Total Protein (6.4-8.2) g/dL Albumin (3.4-5.0) g/dL Globulin (2.0-3.5) g/dL Albumin/Globulin Ratio (1.3-2.8) Urine Color YELLOW Urine Appearance CLEAR Urine pH 6.0 (5.0-8.0) Ur Specific [place] 1.025 (1.001-1.035) Urine Protein NEGATIVE (NEGATIVE) mg/dL Urine Glucose (UA) NEGATIVE (NEGATIVE) mg/dL Urine Ketones 15 H (NEGATIVE) mg/dL Urine Occult Blood NEGATIVE (NEGATIVE) Urine Nitrite NEGATIVE (NEGATIVE) Urine Bilirubin SMALL H (NEGATIVE) Urine Urobilinogen 0.2 (<2.0) EU/dL Ur Leukocyte Esterase NEGATIVE (NEGATIVE) Urine RBC 0-1 (0-2/HPF) Urine WBC 0-2 (0-5/HPF) Ur Epithelial Cells FEW (NONE-FEW) Urine Bacteria RARE (NEGATIVE) Urine Mucus MODERATE (NONE-MOD) 12/22/17 12/22/17 Range/Units 10:30 10:30 WBC 12.33 H (4.0-11.0) K/uL RBC 5.23 (4.30-5.90) M/uL Hgb 14.4 (12.0-16.0) g/dL Hct 43.7 (36.0-46.0) % MCV 83.6 (80.0-98.0) fL MCH 27.5 (27.0-32.0) pg MCHC 33.0 (31.0-37.0) g/dL RDW Std Deviation 44.0 (28.0-62.0) fl RDW Coeff of Laya 15 (11.0-15.0) % Plt Count 332 (150-400) K/uL MPV 10.80 (7.40-12.00) fL Nucleated RBC % 0.0 /100WBC Nucleated RBCs # 0 K/uL ABG pH (7.35-7.45) ABG pCO2 (35-45) mmHG ABG pO2 (75-100) mmHG ABG HCO3 (22-26) mEq/L ABG Total CO2 ABG Base Excess (-2.0-2.0) Sodium 137 (136-145) mmol/L Potassium 4.2 (3.5-5.1) mmol/L Chloride 98 (98-107) mmol/L Carbon Dioxide 32.9 H (21.0-32.0) mmol/L BUN 19 H (7.0-18.0) mg/dL Creatinine 0.9 (0.6-1.0) mg/dL Est Cr Clr Drug Dosing 75.55 mL/min Estimated GFR (MDRD) > 60.0 ml/min Glucose 190 H (74-106) mg/dL Calcium 9.9 (8.5-10.1) mg/dL Phosphorus 3.9 (2.6-4.7) mg/dL Magnesium 2.3 (1.8-2.4) mg/dL Total Bilirubin 0.5 (0.2-1.0) mg/dL AST 19 (15-37) IU/L ALT 19 (14-63) IU/L Alkaline Phosphatase 105 (46-116) U/L B-Natriuretic Peptide (<100) PG/ML Total Protein 7.2 (6.4-8.2) g/dL Albumin 2.6 L (3.4-5.0) g/dL Globulin 4.6 H (2.0-3.5) g/dL Albumin/Globulin Ratio 0.6 L (1.3-2.8) Urine Color Urine Appearance Urine pH (5.0-8.0) Ur Specific [place] (1.001-1.035) Urine Protein (NEGATIVE) mg/dL Urine Glucose (UA) (NEGATIVE) mg/dL Urine Ketones (NEGATIVE) mg/dL Urine Occult Blood (NEGATIVE) Urine Nitrite (NEGATIVE) Urine Bilirubin (NEGATIVE) Urine Urobilinogen (<2.0) EU/dL Ur Leukocyte Esterase (NEGATIVE) Urine RBC (0-2/HPF) Urine WBC (0-5/HPF) Ur Epithelial Cells (NONE-FEW) Urine Bacteria (NEGATIVE) Urine Mucus (NONE-MOD) Toni Results Last 24 Hours: Microbiology 12/21/17 13:40 Aerobic Blood Culture - Preliminary Blood - Venous - Lab Draw NO GROWTH AFTER 1 DAY Anaerobic Blood Culture - Preliminary NO GROWTH AFTER 1 DAY 12/21/17 12:40 Aerobic Blood Culture - Preliminary Blood - Venous NO GROWTH AFTER 1 DAY Anaerobic Blood Culture - Preliminary NO GROWTH AFTER 1 DAY 12/21/17 17:50 Gram Stain - Preliminary Sputum - Expectorated Med Orders - Current: Current Medications Acetaminophen (Tylenol) 650 mg PO Q4H PRN PRN Reason: Pain (Mild 1-3)/fever Albuterol/Ipratropium (Combivent Respimat) 1 gm INH Q6HRRT [facility] Last Admin: 12/22/17 13:31 Dose: 2 puff Apixaban (Eliquis) 5 mg PO BID [facility] Last Admin: 12/22/17 08:29 Dose: 5 mg Budesonide (Pulmicort) 0.5 mg NEB BID [facility] Last Admin: 12/22/17 09:15 Dose: 0.5 mg Docusate Sodium (Colace) 100 mg PO BID [facility] Last Admin: 12/22/17 08:29 Dose: 100 mg Guaifenesin (Robitussin) 200 mg PO Q6H PRN PRN Reason: Cough Aztreonam 1 gm/ Sodium (Chloride) 50 mls @ 100 mls/hr IV Q8H [facility] Last Admin: 12/22/17 08:29 Dose: 100 mls/hr Levofloxacin/Dextrose 750 mg/ (Premix) 150 mls @ 100 mls/hr IV Q24H [facility] Methylprednisolone Sodium Succinate (Solu-Medrol) 40 mg IVPUSH Q6H [facility] Last Admin: 12/22/17 13:31 Dose: 40 mg Ondansetron HCl (Zofran) 4 mg IVPUSH Q4H PRN PRN Reason: Nausea Last Admin: 12/21/17 18:05 Dose: 4 mg Oxycodone HCl (Oxycodone) 15 mg PO Q3HR PRN PRN Reason: Pain Last Admin: 12/22/17 13:51 Dose: 15 mg Oxycodone HCl (Oxycontin) 10 mg PO Q12HR [facility] Last Admin: 12/22/17 10:51 Dose: 10 mg Pantoprazole Sodium (Protonix) 40 mg PO DAILY [facility] Last Admin: 12/22/17 10:52 Dose: 40 mg Sodium Chloride (Saline Flush) 10 ml FLUSH ASDIRECTED PRN PRN Reason: Keep Vein Open Last Admin: 12/21/17 12:43 Dose: 10 ml Sodium Chloride (Saline Flush) 2.5 ml FLUSH ASDIRECTED PRN PRN Reason: Keep Vein Open Last Admin: 12/21/17 12:43 Dose: 2.5 ml Discontinued Medications Albuterol/Ipratropium (Duoneb 3.0-0.5 Mg/3 Ml) 3 ml NEB ONETIME ONE Stop: 12/21/17 13:38 Last Admin: 12/21/17 13:53 Dose: 3 ml Albuterol/Ipratropium (Duoneb 3.0-0.5 Mg/3 Ml) 3 ml NEB Q4HRRT PRN PRN Reason: Shortness Of Breath/wheezing Docusate Sodium (Colace) 100 mg PO BID PRN PRN Reason: Constipation Docusate Sodium (Colace) 100 mg PO BID PRN PRN Reason: Constipation Enoxaparin Sodium (Lovenox) 40 mg SUBCUT Q24H [facility] Last Admin: 12/21/17 15:27 Dose: 40 mg Furosemide (Lasix) 40 mg IVPUSH NOW ONE Stop: 12/21/17 17:47 Last Admin: 12/21/17 18:04 Dose: 40 mg Furosemide (Lasix) 40 mg IVPUSH NOW ONE Stop: 12/22/17 10:12 Last Admin: 12/22/17 10:51 Dose: 40 mg Sodium Chloride (Normal Saline) 1,000 mls @ 999 mls/hr IV STAT ONE Stop: 12/21/17 13:37 Last Admin: 12/21/17 12:43 Dose: 999 mls/hr Levofloxacin/Dextrose 750 mg/ (Premix) 150 mls @ 100 mls/hr IV ONETIME ONE Stop: 12/21/17 15:06 Last Admin: 12/21/17 14:02 Dose: 100 mls/hr Vancomycin HCl 1 gm/ Sodium (Chloride) 250 mls @ 250 mls/hr IV ONETIME ONE Stop: 12/21/17 14:36 Last Admin: 12/21/17 15:23 Dose: 250 mls/hr Aztreonam 1 gm/ Sodium (Chloride) 50 mls @ 100 mls/hr IV Q8HR [facility] Last Admin: 12/21/17 16:13 Dose: Not Given Metronidazole 500 mg/ Premix 100 mls @ 100 mls/hr IV QID [facility] Levofloxacin/Dextrose 750 mg/ (Premix) 150 mls @ 100 mls/hr IV ONETIME ONE Stop: 12/22/17 16:09 Morphine Sulfate (Morphine) 2 mg IVPUSH Q2H PRN PRN Reason: Pain (severe 7-10) Stop: 12/22/17 13:44 Morphine Sulfate (Morphine) 2 mg IVPUSH Q2H PRN PRN Reason: Pain (severe 7-10) Stop: 12/22/17 13:44 Last Admin: 12/22/17 08:35 Dose: 2 mg Non-Formulary Medication (Acetaminophen) 15 ml PO Q4HR [facility] Last Admin: 12/21/17 16:05 Dose: Not Given Non-Formulary Medication (Lansoprazole [Prevacid]) 30 mg PO DAILY [facility] Non-Formulary Medication (Prednisolone [Prednisolone]) 3 ml PO DAILY [facility] Oxycodone HCl (Oxycodone) 5 mg PO Q4H PRN PRN Reason: Pain (moderate 4-6) Last Admin: 12/21/17 15:54 Dose: 5 mg Oxycodone HCl (Oxycodone) 15 mg PO Q4H PRN PRN Reason: Pain (moderate 4-6) Oxycodone HCl (Oxycodone) 5 mg PO Q3H PRN PRN Reason: pain Oxycodone HCl (Oxycodone) 10 mg PO ONETIME ONE Stop: 12/21/17 16:30 Last Admin: 12/21/17 16:36 Dose: 10 mg Albuterol/Ipratropium 4 Gm Inhalation [place] 1 each INH Q6HR [facility] Tramadol HCl (Ultram) 50 mg PO Q6H PRN PRN Reason: Pain - Exam Quality Assessment: Supplemental Oxygen General: Alert, Oriented HEENT: Pupils Equal, Pupils Reactive Neck: Supple, Trachea Midline, Lymphadenopathy (left cervical ) Lungs: Decreased Breath Sounds (LLL), Wheezing Cardiovascular: Regular Rate, Regular Rhythm, No Murmurs GI/Abdominal Exam: Normal Bowel Sounds, Soft, Non-Tender Extremities: Normal Inspection - Problem List & Annotations (1) Small cell lung cancer in adult SNOMED Code(s): 872334279 Code(s): C34.90 - MALIGNANT NEOPLASM OF UNSP PART OF UNSP BRONCHUS OR LUNG Status: Acute Current Visit: Yes (2) Pneumonia SNOMED Code(s): 999853878 Code(s): J18.9 - PNEUMONIA, UNSPECIFIED ORGANISM Status: Acute Current Visit: Yes Qualifiers: Laterality: left Lung location: lower lobe of lung (3) Pleural effusion SNOMED Code(s): 03048179 Code(s): J90 - PLEURAL EFFUSION, NOT ELSEWHERE CLASSIFIED Status: Acute Current Visit: Yes (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 SNOMED Code(s): 81868193 Code(s): C77.0 - SEC AND UNSP MALIG NEOPLASM OF NODES OF HEAD, FACE AND NECK Status: Acute Current Visit: Yes (5) Respiratory failure with hypoxia SNOMED Code(s): 95254377386828928 Code(s): J96.91 - RESPIRATORY FAILURE, UNSPECIFIED WITH HYPOXIA Status: Acute Current Visit: Yes (6) Intractable back pain SNOMED Code(s): 529196856 Code(s): M54.9 - DORSALGIA, UNSPECIFIED Status: Acute Current Visit: Yes (7) Bone metastasis Status: Acute Current Visit: Yes (8) Metastasis to adrenal gland Status: Acute Current Visit: Yes - Problem List Review Problem List Initiated/Reviewed/Updated: Yes - My Orders Last 24 Hours: My Active Orders 12/21/17 14:55 guaiFENesin [Robitussin] 200 mg PO Q6H PRN 12/21/17 16:08 oxyCODONE 15 mg PO Q3HR PRN 12/21/17 17:00 Aztreonam [Azactam] 1 gm Sodium Chloride 0.9% [Normal Saline] 50 ml IV Q8H 08/25/18 17:45 Ondansetron [Zofran] 4 mg IVPUSH Q4H PRN 12/21/17 17:50 CULTURE SPUTUM + SMEAR [RM] Routine 12/21/17 18:00 Albuterol/Ipratropium [Combivent Respimat] 1 gm INH Q6HRRT 12/21/17 21:00 Apixaban [Eliquis] 5 mg PO BID Budesonide [Pulmicort] 0.5 mg NEB BID Docusate Sodium [Colace] 100 mg PO BID 12/22/17 09:30 Pantoprazole [ProTONIX] 40 mg PO DAILY 12/22/17 10:10 oxyCODONE ER [OxyCONTIN] 10 mg PO Q12HR 12/22/17 16:15 Levofloxacin/Dextrose 5%-Water [Levaquin in D5W 750 MG/150 ML] 750 mg Premix Bag 1 bag IV Q24H 12/22/17 17:46 Venous Doppler Upr Ext Lt [US] Routine 12/22/17 Breakfast 2 Gram Sodium Diet [DIET] - Plan Plan:: will continue patient on broad spectrum antibiotics: levofloxacin , 750 mg iv q 24 h , aztreonam 1 gram iv q 8 h and vancomycin iv pharmacy to dose.F/UP CX O2 on NCtitrate to maintain O2 sat above 90% Pain medication : oxycodone 15 mg po q 3-4 h Colace 100 mg po BID Blood culture , sputum culture Robitussin 200 mg po qid solumedrol 60 mg iv q 6 h duoneb neb treatment , pulmicort 0.5 mg q 12h For left arm swelling - lasix 40 mg iv 1 dose, venous doppler negative for blood cloths eliquis 5 mg po BID Gi prof:PPI Prognosis poor ,
[2017-12-22] MEDS: Levofloxacin/Dextrose 5%-Water 750 MG in Premix Bag 1 BAG IV SCH (15:48)
[2017-12-23] MEDS: methylPREDNISolone Sodium Succinate 40 MG/1 ML SDV IVPUSH SCH ×5 (01:00→20:22)
[2017-12-23] MEDS: oxyCODONE 5 MG Tab PO PRN ×2 (06:58→16:11)
[2017-12-23] MEDS: Albuterol/Ipratropium 4 GM Inhalation Spray INH SCH ×3 (08:21→19:22)
[2017-12-23] MEDS: Budesonide 0.5 MG/2 ML Neb Susp NEB SCH ×2 (08:22→20:08)
[2017-12-23] MEDS: Apixaban 5 MG Tab PO SCH ×2 (08:42→20:18)
[2017-12-23] MEDS: oxyCODONE ER 10 MG TAB.ER PO SCH ×2 (08:42→20:18)
[2017-12-23] MEDS: Pantoprazole 40 MG Tab.CR PO SCH (08:42)
[2017-12-23] MEDS: Docusate Sodium 100 MG Cap PO SCH ×2 (08:43→20:19)
[2017-12-23 09:04] LABS: CHLORIDE,CL 98 mmol/L (98-107); SODIUM,NA 136 mmol/L (136-145)
[2017-12-23] MEDS: Morphine 2 MG/ML Syringe IVPUSH PRN ×3 (10:45→20:19)
--- NOTE | 2017-12-23 11:36 | CR ---
EXAM DATE: 12/23/17 PATIENT'S AGE: 52 Patient: AR RUIZ Facility: [place], [place] Site . Site : 1965 Study: XRay Chest [id number]/25/2018 1:03:25 PM Ordering Physician: Doctor Barfield Final Report: Indication: Pain. Shortness of breath. Technique: A single AP portable view of the chest was obtained. Comparison: None Findings: The right lung is clear. Heart is borderline in size. The left hemidiaphragm is elevated. A left lower lobe infiltrate and probable left pleural effusion is identified. No pneumothorax is seen. Impression: Left lower lobe infiltrate and probable left pleural effusion. Dictated by Yris Krishnamurthy MD @ Dec 21 2017 1:22PM (Electronic Signature) Report Signed by Proxy. DEISI
--- NOTE | 2017-12-23 14:39 | US ---
EXAM DATE: 12/23/17 PATIENT'S AGE: 52 Patient: AR RUIZ Facility: [place], [place] Site . Site : 1965 Study: US Extremity Left [id number] 11:22:39 AM Ordering Physician: Amol Ugarte Final Report: INDICATION: Bruising and swelling left antecubital fossa; history of lung cancer. COMPARISON: Chest radiograph December 21, 2017. TECHNIQUE: Duplex ultrasound evaluation venous system left upper extremity; color Doppler duplex assessment. FINDINGS: No evidence of deep vein thrombosis involving the left upper extremity deep venous system. Deep venous system is compressible with augmentation of flow post compression . Difficult to identify the left subclavian and vein adequately. Left internal jugular vein is unremarkable. Cephalic and basilic veins are unremarkable. IMPRESSION: 1. No evidence of deep venous thrombosis left upper extremity deep venous system. 2. Difficult to identify the left subclavian vein adequately. Dictated by Bahman Hidalgo MD @ Dec 22 2017 11:25AM (Electronic Signature) MWReport Signed by Proxy. DEISI
[2017-12-23] MEDS ORDERED: Clindamycin Phosphate in D5W 600 MG in Premix Bag 1 BAG IV SCH ×2 (15:30)
[2017-12-23] MEDS: Levofloxacin/Dextrose 5%-Water 750 MG in Premix Bag 1 BAG IV SCH (16:11)
--- NOTE | 2017-12-23 16:19 | CR ---
EXAM DATE: 12/23/17 PATIENT'S AGE: 52 Patient: AR RUIZ Facility: [place], [place] Site . Site : 1965 Study: XRay Chest [id number]/27/[id number] 11:23:03 AM Ordering Physician: Amol Ugarte Final Report: INDICATION: Pneumonia; history of lung cancer; followup. COMPARISON: Chest radiograph December 21, 2017. TECHNIQUE: Two-view chest. FINDINGS: Opacification of the left thorax; progressive when compared to December 21, 2017. Elevated left hemidiaphragm. Opacification of the left chest is most likely secondary to a combination of tumor, pleural effusion and extensive consolidation. Right lung is clear. CT study of the chest suggested with intravenous contrast for further assessment. IMPRESSION: 1. Progressive opacification of the left lung due to a combination of pneumonia , mass and pleural effusion. 2. Further assessment with a chest CT suggested. 3. Right lung is clear. Dictated by Bahman Hidalgo MD @ Dec 23 2017 11:30AM (Electronic Signature) Report Signed by Proxy. DEISI
--- NOTE | 2017-12-23 16:21 | CT ---
EXAM DATE: 12/23/17 PATIENT'S AGE: 52 Patient: AR RUIZ Facility: [place], [place] Site . Site : 1965 Study: CT Head [id number]/27/[id number] 11:24:51 AM Ordering Physician: Amol Ugarte Final Report: INDICATION: Lung cancer. TECHNIQUE: Contiguous scans were obtained from foramen magnum to vertex prior to and after infusion of iodinated contrast. FINDINGS: There are no enhancing intra-axial or extra-axial lesions. There is no focal brain edema or mass effect. There is no evidence of intracranial metastatic disease. There is no acute hemorrhage. 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 The corpus callosum appears normally formed. The optic chiasm is demonstrated. 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 No posterior fossa hemorrhage, mass effect or enhancing lesion. The bony calvarium is unremarkable. IMPRESSION: 1. No evidence of intracranial metastatic disease. No acute hemorrhage or mass effect. 2. 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 Please note that all CT scans at this facility use dose modulation, iterative reconstruction, and/or weight-based dosing when appropriate to reduce radiation dose to as low as reasonably achievable. Dictated by Victorino Avalos MD @ Dec 23 2017 1:53PM (Electronic Signature) Report Signed by Proxy. [facility]
[2017-12-23] MEDS ORDERED: Iopamidol 755 MG/ML 500 ML Multipack Bottle IVPUSH STA (16:49)
--- NOTE | 2017-12-23 19:51 | PCM.PN ---
- General Info Date of Service: 12/23/17 Admission Dx/Problem (Free Text): Patient has decreased wheezing , but still require 3-5 L o2 NC Her pain is controlled. CXR shower postobstruction pneumonia with complete white out of the left Lung. DW DR. 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 [employer] - he recommended patient continue with antibiotics and have chest PT, start chemotherapy and radiation therapy DESTINI Functional Status: Reports: Pain Controlled - Review of Systems General: Reports: No Symptoms HEENT: Reports: No Symptoms Pulmonary: Reports: Shortness of Breath, Cough, Wheezing, Other (hypoxia) Cardiovascular: Reports: No Symptoms Gastrointestinal: Reports: No Symptoms Genitourinary: Reports: No Symptoms Musculoskeletal: Reports: Back Pain, Other (left arm swelling) Skin: Reports: No Symptoms Neurological: Reports: No Symptoms - Patient Data Vitals - Most Recent: Last Vital Signs Temp 97.9 F 12/23/17 16:00 Pulse 92 12/23/17 16:00 Resp 20 12/23/17 16:00 BP 134/95 H 12/23/17 16:00 Pulse Ox 94 L 12/23/17 16:00 Weight - Most Recent: 183 lb 13.848 oz I&O - Last 24 Hours: Intake & Output 12/23/17 12/23/17 12/23/17 06:59 14:59 22:59 Intake Total 220 560 Output Total 400 700 Balance -180 -140 Lab Results Last 24 Hours: Laboratory Results - last 24 hr 12/23/17 12/23/17 Range/Units 08:37 08:37 WBC 13.67 H (4.0-11.0) K/uL RBC 5.05 (4.30-5.90) M/uL Hgb 13.7 (12.0-16.0) g/dL Hct 42.1 (36.0-46.0) % MCV 83.4 (80.0-98.0) fL MCH 27.1 (27.0-32.0) pg MCHC 32.5 (31.0-37.0) g/dL RDW Std Deviation 44.0 (28.0-62.0) fl RDW Coeff of Laya 15 (11.0-15.0) % Plt Count 307 (150-400) K/uL MPV 10.20 (7.40-12.00) fL Nucleated RBC % 0.0 /100WBC Nucleated RBCs # 0 K/uL Sodium 136 (136-145) mmol/L Potassium 5.0 (3.5-5.1) mmol/L Chloride 98 (98-107) mmol/L Carbon Dioxide 35.6 H (21.0-32.0) mmol/L BUN 20 H (7.0-18.0) mg/dL Creatinine 0.9 (0.6-1.0) mg/dL Est Cr Clr Drug Dosing 75.55 mL/min Estimated GFR (MDRD) > 60.0 ml/min Glucose 165 H (74-106) mg/dL Calcium 10.0 (8.5-10.1) mg/dL Toni Results Last 24 Hours: Microbiology 12/21/17 17:50 Gram Stain - Final Sputum - Expectorated Sputum Culture - Final Normal Respiratory Karol Yeast Isolated 12/21/17 13:40 Aerobic Blood Culture - Preliminary Blood - Venous - Lab Draw NO GROWTH AFTER 2 DAYS Anaerobic Blood Culture - Preliminary NO GROWTH AFTER 2 DAYS 12/21/17 12:40 Aerobic Blood Culture - Preliminary Blood - Venous NO GROWTH AFTER 2 DAYS Anaerobic Blood Culture - Preliminary NO GROWTH AFTER 2 DAYS Med Orders - Current: Current Medications Acetaminophen (Tylenol) 650 mg PO Q4H PRN PRN Reason: Pain (Mild 1-3)/fever Albuterol/Ipratropium (Combivent Respimat) 1 gm INH Q6HRRT [facility] Last Admin: 12/23/17 19:22 Dose: 2 puff Apixaban (Eliquis) 5 mg PO BID [facility] Last Admin: 12/23/17 08:42 Dose: 5 mg Budesonide (Pulmicort) 0.5 mg NEB BID [facility] Last Admin: 12/23/17 08:22 Dose: 0.5 mg Docusate Sodium (Colace) 100 mg PO BID [facility] Last Admin: 12/23/17 08:43 Dose: 100 mg Guaifenesin (Robitussin) 200 mg PO Q6H PRN PRN Reason: Cough Aztreonam 1 gm/ Sodium (Chloride) 50 mls @ 100 mls/hr IV Q8H [facility] Last Admin: 12/23/17 17:54 Dose: 100 mls/hr Levofloxacin/Dextrose 750 mg/ (Premix) 150 mls @ 100 mls/hr IV Q24H [facility] Last Admin: 12/23/17 16:11 Dose: 100 mls/hr Methylprednisolone Sodium Succinate (Solu-Medrol) 40 mg IVPUSH Q6H [facility] Last Admin: 12/23/17 13:57 Dose: 40 mg Morphine Sulfate (Morphine) 2 mg IVPUSH Q2H PRN PRN Reason: Pain Last Admin: 12/23/17 13:56 Dose: 2 mg Ondansetron HCl (Zofran) 4 mg IVPUSH Q4H PRN PRN Reason: Nausea Last Admin: 12/21/17 18:05 Dose: 4 mg Oxycodone HCl (Oxycodone) 15 mg PO Q3HR PRN PRN Reason: Pain Last Admin: 12/23/17 16:11 Dose: 15 mg Oxycodone HCl (Oxycontin) 10 mg PO Q12HR [facility] Last Admin: 12/23/17 08:42 Dose: 10 mg Pantoprazole Sodium (Protonix) 40 mg PO DAILY [facility] Last Admin: 12/23/17 08:42 Dose: 40 mg Sodium Chloride (Saline Flush) 10 ml FLUSH ASDIRECTED PRN PRN Reason: Keep Vein Open Last Admin: 12/21/17 12:43 Dose: 10 ml Sodium Chloride (Saline Flush) 2.5 ml FLUSH ASDIRECTED PRN PRN Reason: Keep Vein Open Last Admin: 12/21/17 12:43 Dose: 2.5 ml Discontinued Medications Albuterol/Ipratropium (Duoneb 3.0-0.5 Mg/3 Ml) 3 ml NEB ONETIME ONE Stop: 12/21/17 13:38 Last Admin: 12/21/17 13:53 Dose: 3 ml Albuterol/Ipratropium (Duoneb 3.0-0.5 Mg/3 Ml) 3 ml NEB Q4HRRT PRN PRN Reason: Shortness Of Breath/wheezing Docusate Sodium (Colace) 100 mg PO BID PRN PRN Reason: Constipation Docusate Sodium (Colace) 100 mg PO BID PRN PRN Reason: Constipation Enoxaparin Sodium (Lovenox) 40 mg SUBCUT Q24H [facility] Last Admin: 12/21/17 15:27 Dose: 40 mg Furosemide (Lasix) 40 mg IVPUSH NOW ONE Stop: 12/21/17 17:47 Last Admin: 12/21/17 18:04 Dose: 40 mg Furosemide (Lasix) 40 mg IVPUSH NOW ONE Stop: 12/22/17 10:12 Last Admin: 12/22/17 10:51 Dose: 40 mg Sodium Chloride (Normal Saline) 1,000 mls @ 999 mls/hr IV STAT ONE Stop: 12/21/17 13:37 Last Admin: 12/21/17 12:43 Dose: 999 mls/hr Levofloxacin/Dextrose 750 mg/ (Premix) 150 mls @ 100 mls/hr IV ONETIME ONE Stop: 12/21/17 15:06 Last Admin: 12/21/17 14:02 Dose: 100 mls/hr Vancomycin HCl 1 gm/ Sodium (Chloride) 250 mls @ 250 mls/hr IV ONETIME ONE Stop: 12/21/17 14:36 Last Admin: 12/21/17 15:23 Dose: 250 mls/hr Aztreonam 1 gm/ Sodium (Chloride) 50 mls @ 100 mls/hr IV Q8HR [facility] Last Admin: 12/21/17 16:13 Dose: Not Given Metronidazole 500 mg/ Premix 100 mls @ 100 mls/hr IV QID [facility] Levofloxacin/Dextrose 750 mg/ (Premix) 150 mls @ 100 mls/hr IV ONETIME ONE Stop: 12/22/17 16:09 Clindamycin Phosphate 600 mg/ (Premix) 50 mls @ 100 mls/hr IV Q6H [facility] Last Admin: 12/23/17 17:49 Dose: Not Given Iopamidol (Isovue Multipack-370 (76%)) 50 ml IVPUSH ONETIME STA Stop: 12/23/17 16:50 Last Admin: 12/23/17 16:49 Dose: 50 ml Morphine Sulfate (Morphine) 2 mg IVPUSH Q2H PRN PRN Reason: Pain (severe 7-10) Stop: 12/22/17 13:44 Morphine Sulfate (Morphine) 2 mg IVPUSH Q2H PRN PRN Reason: Pain (severe 7-10) Stop: 12/22/17 13:44 Last Admin: 12/22/17 08:35 Dose: 2 mg Non-Formulary Medication (Acetaminophen) 15 ml PO Q4HR [facility] Last Admin: 08/25/18 16:05 Dose: Not Given Non-Formulary Medication (Lansoprazole [Prevacid]) 30 mg PO DAILY [facility] Non-Formulary Medication (Prednisolone [Prednisolone]) 3 ml PO DAILY [facility] Oxycodone HCl (Oxycodone) 5 mg PO Q4H PRN PRN Reason: Pain (moderate 4-6) Last Admin: 12/21/17 15:54 Dose: 5 mg Oxycodone HCl (Oxycodone) 15 mg PO Q4H PRN PRN Reason: Pain (moderate 4-6) Oxycodone HCl (Oxycodone) 5 mg PO Q3H PRN PRN Reason: pain Oxycodone HCl (Oxycodone) 10 mg PO ONETIME ONE Stop: 12/21/17 16:30 Last Admin: 12/21/17 16:36 Dose: 10 mg Albuterol/Ipratropium 4 Gm Inhalation [place] 1 each INH Q6HR [facility] Tramadol HCl (Ultram) 50 mg PO Q6H PRN PRN Reason: Pain - Exam Quality Assessment: Supplemental Oxygen (3-5l) General: Alert, Oriented, Cooperative HEENT: Pupils Equal, Pupils Reactive Neck: Supple, Trachea Midline, No JVD, No Thyromegaly Lungs: Clear to Auscultation, Normal Respiratory Effort Cardiovascular: Regular Rate, Regular Rhythm, No Murmurs GI/Abdominal Exam: Normal Bowel Sounds, Soft, Non-Tender, No Organomegaly, No Distention, No Abnormal Bruit Back Exam: Normal Inspection Extremities: Normal Inspection, Normal Range of Motion, Non-Tender, No Pedal Edema Skin: Warm, Dry, Intact Neurological: No New Focal Deficit Psy/Mental Status: Alert, Normal Affect - Problem List & Annotations (1) Small cell lung cancer in adult SNOMED Code(s): 563174296 Code(s): C34.90 - MALIGNANT NEOPLASM OF UNSP PART OF UNSP BRONCHUS OR LUNG Status: Acute Current Visit: Yes (2) Pleural effusion SNOMED Code(s): 22248112 Code(s): J90 - PLEURAL EFFUSION, NOT ELSEWHERE CLASSIFIED Status: Acute Current Visit: Yes (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 SNOMED Code(s): 95094849 Code(s): C77.0 - SEC AND UNSP MALIG NEOPLASM OF NODES OF HEAD, FACE AND NECK Status: Acute Current Visit: Yes (4) Respiratory failure with hypoxia SNOMED Code(s): 38587723116328681 Code(s): J96.91 - RESPIRATORY FAILURE, UNSPECIFIED WITH HYPOXIA Status: Acute Current Visit: Yes (5) Intractable back pain SNOMED Code(s): 991149004 Code(s): M54.9 - DORSALGIA, UNSPECIFIED Status: Acute Current Visit: Yes (6) Bone metastasis Status: Acute Current Visit: Yes (7) Metastasis to adrenal gland Status: Acute Current Visit: Yes (8) Postobstructive pneumonia SNOMED Code(s): 050225871 Code(s): J18.9 - PNEUMONIA, UNSPECIFIED ORGANISM Status: Acute Priority: High Current Visit: Yes (9) Hypoxia SNOMED Code(s): 420434286 Code(s): R09.02 - HYPOXEMIA Status: Acute Current Visit: Yes (10) Left arm swelling SNOMED Code(s): 919998580 Code(s): M79.89 - OTHER SPECIFIED SOFT TISSUE DISORDERS Status: Acute Current Visit: Yes - Problem List Review Problem List Initiated/Reviewed/Updated: Yes - My Orders Last 24 Hours: My Active Orders 12/23/17 07:34 Patient Status [ADT] Routine 12/23/17 15:37 Chest Physiotherapy [RT Chest Physiotherapy] [RC] DAILY - Plan Plan:: will continue patient on broad spectrum antibiotics: levofloxacin , 750 mg iv q 24 h , clindamycin 600 mg iv q6 h , d/c aztreonam, vancomycin iv pharmacy to dose.F/UP CX O2 on NCtitrate to maintain O2 sat above 90% Pain medication : oxycodone 15 mg po q 3-4 h , oxycodone ER 10 mg po BID Colace 100 mg po BID Blood culture , sputum culture negative Robitussin 200 mg po qid decrease solumedrol to 40 mh iv q 8 h duoneb neb treatment , pulmicort 0.5 mg q 12h For left arm swelling - improved , swelling due to lymphadenopathy eliquis 5 mg po BID Gi prof:PPI Prognosis poor ,
[2017-12-23] MEDS: Clindamycin Phosphate in D5W 600 MG in Premix Bag 50 BAG IV SCH ×2 (20:20)
[2017-12-24] MEDS: Albuterol/Ipratropium 4 GM Inhalation Spray INH SCH ×4 (00:10→18:30)
[2017-12-24] MEDS: Morphine 2 MG/ML Syringe IVPUSH PRN ×3 (00:16→16:06)
[2017-12-24] MEDS: Clindamycin Phosphate in D5W 600 MG in Premix Bag 50 BAG IV SCH ×8 (02:40→20:59)
[2017-12-24] MEDS: methylPREDNISolone Sodium Succinate 40 MG/1 ML SDV IVPUSH SCH (04:10)
[2017-12-24] MEDS: oxyCODONE 5 MG Tab PO PRN ×3 (07:05→18:24)
[2017-12-24] MEDS: Apixaban 5 MG Tab PO SCH ×2 (08:52→21:51)
[2017-12-24] MEDS: oxyCODONE ER 10 MG TAB.ER PO SCH ×2 (08:52→20:36)
[2017-12-24] MEDS: Docusate Sodium 100 MG Cap PO SCH ×2 (08:52→20:36)
[2017-12-24] MEDS: Pantoprazole 40 MG Tab.CR PO SCH (08:53)
[2017-12-24] MEDS: Budesonide 0.5 MG/2 ML Neb Susp NEB SCH ×2 (09:22→21:14)
--- NOTE | 2017-12-24 09:30 | CR ---
EXAMINATION: Portable chest radiograph. HISTORY: Pneumonia. Comparison: 12/23/2017. FINDINGS: The trachea is midline. There is dense consolidation again noted within the left hemithorax appears s table from the prior radiograph. Mainstem bronchus is not visualized and is included on the previous CT scan. The left hemidiaphragm i s elevated suggesting a component of atelectasis. The right lung is clear. Osseous structures appear unremarkable. IMPRESSION: 1. Stable consolidation and atelectasis within the left hemithorax consistent with obstruction of the left mainstem bronchus.
[2017-12-24] MEDS ORDERED: oxyCODONE 5 MG Tab PO ONE (12:31)
--- NOTE | 2017-12-24 13:01 | PCM.PN ---
- General Info Date of Service: 12/24/17 Admission Dx/Problem (Free Text): Patient improving with the Chest pt valve she received yesterday and the IV antibiotics. She has decreased wheezing but she has fremitus. Needs to continue antibiotics for about 6 weeks CXR did not show significant improvement. Dr. Doll the oncologist was called regarding her and I am waiting to hear back from him. - Review of Systems General: Reports: Fatigue Pulmonary: Reports: Shortness of Breath, Cough, Sputum, Wheezing Cardiovascular: Reports: No Symptoms Gastrointestinal: Reports: No Symptoms Genitourinary: Reports: No Symptoms Musculoskeletal: Reports: Back Pain Skin: Reports: No Symptoms Neurological: Reports: No Symptoms Psychiatric: Reports: No Symptoms - Patient Data Vitals - Most Recent: Last Vital Signs Temp 97.7 F 12/24/17 12:00 Pulse 75 12/24/17 12:00 Resp 14 12/24/17 12:00 BP 128/77 12/24/17 12:00 Pulse Ox 99 12/24/17 12:00 Weight - Most Recent: 183 lb 13.848 oz I&O - Last 24 Hours: Intake & Output 12/23/17 12/24/17 12/24/17 22:59 06:59 14:59 Intake Total 560 600 Output Total 700 400 Balance -140 200 Toni Results Last 24 Hours: Microbiology 12/21/17 17:50 Gram Stain - Final Sputum - Expectorated Sputum Culture - Final Normal Respiratory Karol Yeast Isolated 12/21/17 13:40 Aerobic Blood Culture - Preliminary Blood - Venous - Lab Draw NO GROWTH AFTER 2 DAYS Anaerobic Blood Culture - Preliminary NO GROWTH AFTER 2 DAYS 12/21/17 12:40 Aerobic Blood Culture - Preliminary Blood - Venous NO GROWTH AFTER 2 DAYS Anaerobic Blood Culture - Preliminary NO GROWTH AFTER 2 DAYS Med Orders - Current: Current Medications Acetaminophen (Tylenol) 650 mg PO Q4H PRN PRN Reason: Pain (Mild 1-3)/fever Albuterol/Ipratropium (Combivent Respimat) 1 gm INH Q6HRRT [facility] Last Admin: 12/24/17 06:59 Dose: 2 puff Apixaban (Eliquis) 5 mg PO BID [facility] Last Admin: 12/24/17 08:52 Dose: 5 mg Budesonide (Pulmicort) 0.5 mg NEB BID [facility] Last Admin: 12/24/17 09:22 Dose: 0.5 mg Docusate Sodium (Colace) 100 mg PO BID [facility] Last Admin: 12/24/17 08:52 Dose: 100 mg Guaifenesin (Robitussin) 200 mg PO Q6H PRN PRN Reason: Cough Levofloxacin/Dextrose 750 mg/ (Premix) 150 mls @ 100 mls/hr IV Q24H [facility] Last Admin: 12/23/17 16:11 Dose: 100 mls/hr Clindamycin Phosphate 600 mg/ (Premix) 50 mls @ 100 mls/hr IV Q6H [facility] Last Admin: 12/24/17 08:51 Dose: 100 mls/hr Morphine Sulfate (Morphine) 2 mg IVPUSH Q2H PRN PRN Reason: Pain Last Admin: 12/24/17 04:10 Dose: 2 mg Ondansetron HCl (Zofran) 4 mg IVPUSH Q4H PRN PRN Reason: Nausea Last Admin: 12/21/17 18:05 Dose: 4 mg Oxycodone HCl (Oxycodone) 15 mg PO Q3HR PRN PRN Reason: Pain Last Admin: 12/24/17 12:19 Dose: 10 mg Oxycodone HCl (Oxycontin) 10 mg PO Q12HR [facility] Last Admin: 12/24/17 08:52 Dose: 10 mg Pantoprazole Sodium (Protonix) 40 mg PO DAILY [facility] Last Admin: 12/24/17 08:53 Dose: 40 mg Prednisone (Prednisone) 40 mg PO WITHBREAKFAST [facility] Sodium Chloride (Saline Flush) 10 ml FLUSH ASDIRECTED PRN PRN Reason: Keep Vein Open Last Admin: 12/21/17 12:43 Dose: 10 ml Sodium Chloride (Saline Flush) 2.5 ml FLUSH ASDIRECTED PRN PRN Reason: Keep Vein Open Last Admin: 12/21/17 12:43 Dose: 2.5 ml Discontinued Medications Albuterol/Ipratropium (Duoneb 3.0-0.5 Mg/3 Ml) 3 ml NEB ONETIME ONE Stop: 12/21/17 13:38 Last Admin: 12/21/17 13:53 Dose: 3 ml Albuterol/Ipratropium (Duoneb 3.0-0.5 Mg/3 Ml) 3 ml NEB Q4HRRT PRN PRN Reason: Shortness Of Breath/wheezing Docusate Sodium (Colace) 100 mg PO BID PRN PRN Reason: Constipation Docusate Sodium (Colace) 100 mg PO BID PRN PRN Reason: Constipation Enoxaparin Sodium (Lovenox) 40 mg SUBCUT Q24H [facility] Last Admin: 12/21/17 15:27 Dose: 40 mg Furosemide (Lasix) 40 mg IVPUSH NOW ONE Stop: 12/21/17 17:47 Last Admin: 12/21/17 18:04 Dose: 40 mg Furosemide (Lasix) 40 mg IVPUSH NOW ONE Stop: 12/22/17 10:12 Last Admin: 12/22/17 10:51 Dose: 40 mg Sodium Chloride (Normal Saline) 1,000 mls @ 999 mls/hr IV STAT ONE Stop: 12/21/17 13:37 Last Admin: 12/21/17 12:43 Dose: 999 mls/hr Levofloxacin/Dextrose 750 mg/ (Premix) 150 mls @ 100 mls/hr IV ONETIME ONE Stop: 12/21/17 15:06 Last Admin: 12/21/17 14:02 Dose: 100 mls/hr Vancomycin HCl 1 gm/ Sodium (Chloride) 250 mls @ 250 mls/hr IV ONETIME ONE Stop: 12/21/17 14:36 Last Admin: 12/21/17 15:23 Dose: 250 mls/hr Aztreonam 1 gm/ Sodium (Chloride) 50 mls @ 100 mls/hr IV Q8HR [facility] Last Admin: 12/21/17 16:13 Dose: Not Given Metronidazole 500 mg/ Premix 100 mls @ 100 mls/hr IV QID [facility] Levofloxacin/Dextrose 750 mg/ (Premix) 150 mls @ 100 mls/hr IV ONETIME ONE Stop: 12/22/17 16:09 Aztreonam 1 gm/ Sodium (Chloride) 50 mls @ 100 mls/hr IV Q8H [facility] Last Admin: 12/23/17 17:54 Dose: 100 mls/hr Clindamycin Phosphate 600 mg/ (Premix) 50 mls @ 100 mls/hr IV Q6H [facility] Last Admin: 12/23/17 17:49 Dose: Not Given Iopamidol (Isovue Multipack-370 (76%)) 50 ml IVPUSH ONETIME STA Stop: 12/23/17 16:50 Last Admin: 12/23/17 16:49 Dose: 50 ml Methylprednisolone Sodium Succinate (Solu-Medrol) 40 mg IVPUSH Q6H [facility] Last Admin: 12/23/17 20:00 Dose: 40 mg Methylprednisolone Sodium Succinate (Solu-Medrol) 40 mg IVPUSH Q8H [facility] Last Admin: 12/24/17 04:10 Dose: 40 mg Morphine Sulfate (Morphine) 2 mg IVPUSH Q2H PRN PRN Reason: Pain (severe 7-10) Stop: 12/22/17 13:44 Morphine Sulfate (Morphine) 2 mg IVPUSH Q2H PRN PRN Reason: Pain (severe 7-10) Stop: 12/22/17 13:44 Last Admin: 12/22/17 08:35 Dose: 2 mg Non-Formulary Medication (Acetaminophen) 15 ml PO Q4HR [facility] Last Admin: 12/21/17 16:05 Dose: Not Given Non-Formulary Medication (Lansoprazole [Prevacid]) 30 mg PO DAILY [facility] Non-Formulary Medication (Prednisolone [Prednisolone]) 3 ml PO DAILY [facility] Oxycodone HCl (Oxycodone) 5 mg PO Q4H PRN PRN Reason: Pain (moderate 4-6) Last Admin: 12/21/17 15:54 Dose: 5 mg Oxycodone HCl (Oxycodone) 15 mg PO Q4H PRN PRN Reason: Pain (moderate 4-6) Oxycodone HCl (Oxycodone) 5 mg PO Q3H PRN PRN Reason: pain Oxycodone HCl (Oxycodone) 10 mg PO ONETIME ONE Stop: 12/21/17 16:30 Last Admin: 12/21/17 16:36 Dose: 10 mg Oxycodone HCl (Oxycodone) 5 mg PO ONETIME ONE Stop: 12/24/17 12:32 Last Admin: 12/24/17 12:40 Dose: 5 mg Albuterol/Ipratropium 4 Gm Inhalation [place] 1 each INH Q6HR [facility] Tramadol HCl (Ultram) 50 mg PO Q6H PRN PRN Reason: Pain - Exam General: Alert, Oriented HEENT: Pupils Equal, Pupils Reactive Neck: Supple, Trachea Midline, No JVD, No Thyromegaly Lungs: Stridor, Wheezing Cardiovascular: Regular Rate, Regular Rhythm, No Murmurs GI/Abdominal Exam: Normal Bowel Sounds, Soft, Non-Tender, No Organomegaly, No Distention (Female) Exam: Normal External Exam Back Exam: Normal Inspection Extremities: Normal Inspection Skin: Warm Neurological: No New Focal Deficit Psy/Mental Status: Alert, Normal Affect - Problem List & Annotations (1) Small cell lung cancer in adult SNOMED Code(s): 628418890 Code(s): C34.90 - MALIGNANT NEOPLASM OF UNSP PART OF UNSP BRONCHUS OR LUNG Status: Acute Current Visit: Yes (2) Pleural effusion SNOMED Code(s): 30162714 Code(s): J90 - PLEURAL EFFUSION, NOT ELSEWHERE CLASSIFIED Status: Acute Current Visit: Yes (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 SNOMED Code(s): 06949241 Code(s): C77.0 - SEC AND UNSP MALIG NEOPLASM OF NODES OF HEAD, FACE AND NECK Status: Acute Current Visit: Yes (4) Respiratory failure with hypoxia SNOMED Code(s): 81421958704475074 Code(s): J96.91 - RESPIRATORY FAILURE, UNSPECIFIED WITH HYPOXIA Status: Acute Current Visit: Yes (5) Intractable back pain SNOMED Code(s): 778142866 Code(s): M54.9 - DORSALGIA, UNSPECIFIED Status: Acute Current Visit: Yes (6) Bone metastasis Status: Acute Current Visit: Yes (7) Metastasis to adrenal gland Status: Acute Current Visit: Yes (8) Postobstructive pneumonia SNOMED Code(s): 634923293 Code(s): J18.9 - PNEUMONIA, UNSPECIFIED ORGANISM Status: Acute Priority: High Current Visit: Yes (9) Left arm swelling SNOMED Code(s): 643029814 Code(s): M79.89 - OTHER SPECIFIED SOFT TISSUE DISORDERS Status: Acute Current Visit: Yes - Problem List Review Problem List Initiated/Reviewed/Updated: Yes - My Orders Last 24 Hours: My Active Orders 12/23/17 15:37 Chest Physiotherapy [RT Chest Physiotherapy] [RC] DAILY 12/23/17 20:00 Clindamycin Phosphate in D5W [Cleocin in D5W] 600 mg Premix Bag 50 bag IV Q6H 08/29/18 08:00 predniSONE 40 mg PO WITHBREAKFAST - Plan Plan:: will continue patient on broad spectrum antibiotics: levofloxacin , 750 mg iv q 24 h , clindamycin 600 mg iv q6 h , . CX negative day 3 , sputum culture negative O2 on NCtitrate to maintain O2 sat above 90% Pain medication : oxycodone 15 mg po q 3-4 h , oxycodone ER 10 mg po BID Colace 100 mg po BID Robitussin 200 mg po qid d/c solumedrol , prednisone 40 mg po with breakfast duoneb neb treatment , pulmicort 0.5 mg q 12h For left arm swelling - improved , swelling due to lymphadenopathy eliquis 5 mg po BID Gi prof:PPI Prognosis poor ,
[2017-12-24] MEDS: Levofloxacin/Dextrose 5%-Water 750 MG in Premix Bag 1 BAG IV SCH (16:05)
[2017-12-24] MEDS: Ondansetron 4 MG/2 ML SDV IVPUSH PRN (21:13)
[2017-12-25] MEDS: Albuterol/Ipratropium 4 GM Inhalation Spray INH SCH ×2 (00:28→07:39)
[2017-12-25] MEDS: Morphine 2 MG/ML Syringe IVPUSH PRN (01:17)
[2017-12-25] MEDS: Clindamycin Phosphate in D5W 600 MG in Premix Bag 50 BAG IV SCH ×4 (02:17→07:43)
[2017-12-25 05:57] LABS: CHLORIDE,CL 100 mmol/L (98-107); SODIUM,NA 139 mmol/L (136-145)
[2017-12-25] MEDS ORDERED: predniSONE 20 MG Tab PO SCH (08:00)
[2017-12-25] MEDS: Docusate Sodium 100 MG Cap PO SCH (08:30)
[2017-12-25] MEDS: oxyCODONE ER 10 MG TAB.ER PO SCH (08:30)
[2017-12-25] MEDS: Pantoprazole 40 MG Tab.CR PO SCH (08:32)
[2017-12-25] MEDS: Apixaban 5 MG Tab PO SCH (08:32)
[2017-12-25 08:38] VITALS: BP 134/72
[2017-12-25] MEDS: Budesonide 0.5 MG/2 ML Neb Susp NEB SCH (09:08)
[2017-12-25] MEDS: oxyCODONE 5 MG Tab PO PRN (10:47)
--- NOTE | 2017-12-25 18:17 | PCM.DCSUM1 ---
Discharge Summary - Hospital Course HPI Initial Comments: Patient 52 y old female diagnosed with metastatic small cell lung cancer 2 weeks ago presented to hospital today due to increase SOB , fever , chills for the past 4-5 days and cough productive of yellow green phlegm,wheezing . Patient currently is still smoking , she smoked 1/2 PPD for the past 40 y. Patient says she lost 100lbs for the past 8 months. .She has a tenderness and swelling rt side of the back and supraclavicular fossa left. Her cancer is spred to the bones and supraadrenal glands.She has severe pain in the back , currently she is on oxycodone 15 mg po q 3-4 h . At arrival in ER patient O2 sat. was 78 % and patient was placed on non rebreathable mask. At arrival on the floor she was on 5 L NC saturating 92%.CXR showed LLL infiltrate and effusions. Saw doctor Lavon and is supposed to start her first round of chemotherapy . 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 SNOMED Code(s): 63895377 ICD Code: C77.0 - SEC AND UNSP MALIG NEOPLASM OF NODES OF HEAD, FACE AND NECK Status: Acute (4) Respiratory failure with hypoxia SNOMED Code(s): 66634317607149192 ICD Code: J96.91 - RESPIRATORY FAILURE, UNSPECIFIED WITH HYPOXIA Status: Acute (5) Intractable back pain SNOMED Code(s): 901472571 ICD Code: M54.9 - DORSALGIA, UNSPECIFIED Status: Acute (6) Bone metastasis Status: Acute (7) Metastasis to adrenal gland Status: Acute (8) Postobstructive pneumonia SNOMED Code(s): 233131647 ICD Code: J18.9 - PNEUMONIA, UNSPECIFIED ORGANISM Status: Acute Priority : High (9) Left arm swelling SNOMED Code(s): 481916068 ICD Code: M79.89 - OTHER SPECIFIED SOFT TISSUE DISORDERS Status: Acute - Patient Summary/Data Recommended Follow-up Testing/Procedures: F/up Oncology today Hospital Course: Patient was admitted in hospital with pneumonia and COPD exac , respiratory failure hypoxic on 6 L of O2 . Patient was started on LevAQUIN AND AZTREONAM and was given nebs for COPD and solumedrol iv . Her wheezing improved , she still had stridor , her O2 improved to 3 L NC at rest. repeat cxr showed worsening pneumonia and her antibiotics were changed to clyndamycin 600 mg iv q 6 h and levaquin 750 mg ivpb daily. She had swelling of the left arm that was due to to neck masses , venous doppler left arm was negative. In hospital she was started on Eliquis 5 mg po Bid and was kept on it as profilaxis for thombosis due to cancer. Patient wanted to go to [facility] traveling to start treatment there. She is unable to travel 2000 [address] by car due to severe cancer and metastasis . Oncology nurse came here today and she said patient need to start chemotherapy right away. Patient agrerd to go. She was discharged home on home O2 and levaquin 750 mg po daily for 40 days and metronidazole po TID , advair inh , neb teratment and prednisone 50 mg po for 2 more days. Patient was adviced to stop smoking. During hospital stay her pain was not controlled and she was given Oxycodone 10 mg extended release BID - Patient Instructions Diet: Usual Diet as Tolerated Activity: As Tolerated Driving: May Drive Today Showering/Bathing: August Shower - Discharge Plan Prescriptions/Med Rec: oxyCODONE ER [OxyCONTIN] 10 mg PO Q12HR 30 Days #60 tab.er Docusate Sodium [Colace] 100 mg PO BID #60 cap guaiFENesin [Robitussin] 200 mg PO Q6H PRN #1 cup PRN Reason: Cough Levofloxacin 750 mg PO DAILY 40 Days #40 tablet metroNIDAZOLE [Flagyl] 500 mg PO TID #120 tab Pantoprazole Sodium 40 mg PO DAILY #30 tablet. predniSONE 40 mg PO WITHBREAKFAST #2 tablet Home Medications: Home Meds Albuterol/Ipratropium [Combivent Respimat] 2 puff INH Q6HR 12/21/17 [History] oxyCODONE HCl [oxyCODONE] 15 mg PO Q3HR PRN 12/21/17 [History] Docusate Sodium [Colace] 100 mg PO BID #60 cap 12/25/17 [Rx] Levofloxacin 750 mg PO DAILY 40 Days #40 tablet 12/25/17 [Rx] Pantoprazole Sodium 40 mg PO DAILY #30 tablet. 12/25/17 [Rx] guaiFENesin [Robitussin] 200 mg PO Q6H PRN #1 cup 12/25/17 [Rx] metroNIDAZOLE [Flagyl] 500 mg PO TID #120 tab 12/25/17 [Rx] oxyCODONE ER [OxyCONTIN] 10 mg PO Q12HR 30 Days #60 tab.er 12/25/17 [Rx] predniSONE 40 mg PO WITHBREAKFAST #2 tablet 12/25/17 [Rx] Patient Handouts: Oxycodone tablets or capsules, Back Pain, Adult, Dextromethorphan; Guaifenesin oral suspension, Guaifenesin oral solution and syrup, Pantoprazole tablets, Levofloxacin tablets, Prednisone tablets, Oxycodone extended-release tablets, Docusate capsules, Metronidazole tablets or capsules Referrals: Morgan Doll MD [Consulting Physician] - - Discharge Summary/Plan Comment DC Time >30 min.: Yes - General Info Date of Service: 12/25/17 Subjective Update: Feeling better.Wants to go home. - Review of Systems General: Reports: Fatigue HEENT: Reports: No Symptoms Pulmonary: Reports: Cough, Other (stridor) Cardiovascular: Reports: No Symptoms Genitourinary: Reports: No Symptoms Musculoskeletal: Reports: Back Pain Skin: Reports: No Symptoms Neurological: Reports: No Symptoms Psychiatric: Reports: No Symptoms - Patient Data Vitals - Most Recent: Last Vital Signs Temp 96 F 12/25/17 08:00 Pulse 88 12/25/17 08:00 Resp 16 12/25/17 08:00 BP 134/72 12/25/17 08:00 Pulse Ox 92 L 12/25/17 08:00 Weight - Most Recent: 183 lb 13.848 oz I&O - Last 24 hours: Intake & Output 12/25/17 12/25/17 12/25/17 06:59 14:59 22:59 Intake Total 900 550 Output Total 750 600 Balance 150 -50 Lab Results - Last 24 hrs: Laboratory Results - last 24 hr 12/25/17 12/25/17 Range/Units 05:15 05:15 WBC 7.49 (4.0-11.0) K/uL RBC 4.49 (4.30-5.90) M/uL Hgb 12.0 (12.0-16.0) g/dL Hct 38.2 (36.0-46.0) % MCV 85.1 (80.0-98.0) fL MCH 26.7 L (27.0-32.0) pg MCHC 31.4 (31.0-37.0) g/dL RDW Std Deviation 45.1 (28.0-62.0) fl RDW Coeff of Laya 15 (11.0-15.0) % Plt Count 270 (150-400) K/uL MPV 10.60 (7.40-12.00) fL Neut % (Auto) 63.2 (48.0-80.0) % Lymph % (Auto) 23.2 (16.0-40.0) % [place] % (Auto) 13.2 (0.0-15.0) % Eos % (Auto) 0.3 (0.0-7.0) % Baso % (Auto) 0.1 (0.0-1.5) % Neut # (Auto) 4.7 (1.4-5.7) K/uL Lymph # (Auto) 1.7 (0.6-2.4) K/uL [place] # (Auto) 1.0 H (0.0-0.8) K/uL Eos # (Auto) 0.0 (0.0-0.7) K/uL Baso # (Auto) 0.0 (0.0-0.1) K/uL Nucleated RBC % 0.0 /100WBC Nucleated RBCs # 0 K/uL Sodium 139 (136-145) mmol/L Potassium 4.2 (3.5-5.1) mmol/L Chloride 100 (98-107) mmol/L Carbon Dioxide 35.6 H (21.0-32.0) mmol/L BUN 17 (7.0-18.0) mg/dL Creatinine 0.7 (0.6-1.0) mg/dL Est Cr Clr Drug Dosing 97.13 mL/min Estimated GFR (MDRD) > 60.0 ml/min Glucose 95 (74-106) mg/dL Calcium 9.3 (8.5-10.1) mg/dL Total Bilirubin 0.3 (0.2-1.0) mg/dL AST 26 (15-37) IU/L ALT 40 (14-63) IU/L Alkaline Phosphatase 78 (46-116) U/L Total Protein 5.9 L (6.4-8.2) g/dL Albumin 2.3 L (3.4-5.0) g/dL Globulin 3.6 H (2.0-3.5) g/dL Albumin/Globulin Ratio 0.6 L (1.3-2.8) JACK Results - Last 24 hrs: Microbiology 12/21/17 13:40 Aerobic Blood Culture - Preliminary Blood - Venous - Lab Draw NO GROWTH AFTER 4 DAYS Anaerobic Blood Culture - Preliminary NO GROWTH AFTER 4 DAYS 12/21/17 12:40 Aerobic Blood Culture - Preliminary Blood - Venous NO GROWTH AFTER 4 DAYS Anaerobic Blood Culture - Preliminary NO GROWTH AFTER 4 DAYS Med Orders - Current: Current Medications Discontinued Medications Acetaminophen (Tylenol) 650 mg PO Q4H PRN PRN Reason: Pain (Mild 1-3)/fever Albuterol/Ipratropium (Duoneb 3.0-0.5 Mg/3 Ml) 3 ml NEB ONETIME ONE Stop: 12/21/17 13:38 Last Admin: 12/21/17 13:53 Dose: 3 ml Albuterol/Ipratropium (Duoneb 3.0-0.5 Mg/3 Ml) 3 ml NEB Q4HRRT PRN PRN Reason: Shortness Of Breath/wheezing Albuterol/Ipratropium (Combivent Respimat) 1 gm INH Q6HRRT [facility] Last Admin: 12/25/17 07:39 Dose: 2 puff Apixaban (Eliquis) 5 mg PO BID [facility] Last Admin: 12/25/17 08:32 Dose: 5 mg Budesonide (Pulmicort) 0.5 mg NEB BID [facility] Last Admin: 12/25/17 09:08 Dose: 0.5 mg Docusate Sodium (Colace) 100 mg PO BID PRN PRN Reason: Constipation Docusate Sodium (Colace) 100 mg PO BID PRN PRN Reason: Constipation Docusate Sodium (Colace) 100 mg PO BID [facility] Last Admin: 12/25/17 08:30 Dose: 100 mg Enoxaparin Sodium (Lovenox) 40 mg SUBCUT Q24H [facility] Last Admin: 12/21/17 15:27 Dose: 40 mg Furosemide (Lasix) 40 mg IVPUSH NOW ONE Stop: 12/21/17 17:47 Last Admin: 12/21/17 18:04 Dose: 40 mg Furosemide (Lasix) 40 mg IVPUSH NOW ONE Stop: 12/22/17 10:12 Last Admin: 12/22/17 10:51 Dose: 40 mg Guaifenesin (Robitussin) 200 mg PO Q6H PRN PRN Reason: Cough Sodium Chloride (Normal Saline) 1,000 mls @ 999 mls/hr IV STAT ONE Stop: 12/21/17 13:37 Last Admin: 12/21/17 12:43 Dose: 999 mls/hr Levofloxacin/Dextrose 750 mg/ (Premix) 150 mls @ 100 mls/hr IV ONETIME ONE Stop: 12/21/17 15:06 Last Admin: 12/21/17 14:02 Dose: 100 mls/hr Vancomycin HCl 1 gm/ Sodium (Chloride) 250 mls @ 250 mls/hr IV ONETIME ONE Stop: 12/21/17 14:36 Last Admin: 12/21/17 15:23 Dose: 250 mls/hr Aztreonam 1 gm/ Sodium (Chloride) 50 mls @ 100 mls/hr IV Q8HR [facility] Last Admin: 12/21/17 16:13 Dose: Not Given Metronidazole 500 mg/ Premix 100 mls @ 100 mls/hr IV QID JD Levofloxacin/Dextrose 750 mg/ (Premix) 150 mls @ 100 mls/hr IV ONETIME ONE Stop: 12/22/17 16:09 Aztreonam 1 gm/ Sodium (Chloride) 50 mls @ 100 mls/hr IV Q8H [facility] Last Admin: 12/23/17 17:54 Dose: 100 mls/hr Levofloxacin/Dextrose 750 mg/ (Premix) 150 mls @ 100 mls/hr IV Q24H [facility] Last Admin: 12/24/17 16:05 Dose: 100 mls/hr Clindamycin Phosphate 600 mg/ (Premix) 50 mls @ 100 mls/hr IV Q6H [facility] Last Admin: 12/23/17 17:49 Dose: Not Given Clindamycin Phosphate 600 mg/ (Premix) 50 mls @ 100 mls/hr IV Q6H JD Last Admin: 12/25/17 07:43 Dose: 100 mls/hr Iopamidol (Isovue Multipack-370 (76%)) 50 ml IVPUSH ONETIME STA Stop: 12/23/17 16:50 Last Admin: 12/23/17 16:49 Dose: 50 ml Methylprednisolone Sodium Succinate (Solu-Medrol) 40 mg IVPUSH Q6H [facility] Last Admin: 12/23/17 20:00 Dose: 40 mg Methylprednisolone Sodium Succinate (Solu-Medrol) 40 mg IVPUSH Q8H [facility] Last Admin: 12/24/17 04:10 Dose: 40 mg Morphine Sulfate (Morphine) 2 mg IVPUSH Q2H PRN PRN Reason: Pain (severe 7-10) Stop: 12/22/17 13:44 Morphine Sulfate (Morphine) 2 mg IVPUSH Q2H PRN PRN Reason: Pain (severe 7-10) Stop: 12/22/17 13:44 Last Admin: 12/22/17 08:35 Dose: 2 mg Morphine Sulfate (Morphine) 2 mg IVPUSH Q2H PRN PRN Reason: Pain Last Admin: 12/25/17 01:17 Dose: 2 mg Non-Formulary Medication (Acetaminophen) 15 ml PO Q4HR [facility] Last Admin: 12/21/17 16:05 Dose: Not Given Non-Formulary Medication (Lansoprazole [Prevacid]) 30 mg PO DAILY [facility] Non-Formulary Medication (Prednisolone [Prednisolone]) 3 ml PO DAILY [facility] Ondansetron HCl (Zofran) 4 mg IVPUSH Q4H PRN PRN Reason: Nausea Last Admin: 12/24/17 21:13 Dose: 4 mg Oxycodone HCl (Oxycodone) 5 mg PO Q4H PRN PRN Reason: Pain (moderate 4-6) Last Admin: 12/21/17 15:54 Dose: 5 mg Oxycodone HCl (Oxycodone) 15 mg PO Q3HR PRN PRN Reason: Pain Last Admin: 12/25/17 10:47 Dose: 15 mg Oxycodone HCl (Oxycodone) 15 mg PO Q4H PRN PRN Reason: Pain (moderate 4-6) Oxycodone HCl (Oxycodone) 5 mg PO Q3H PRN PRN Reason: pain Oxycodone HCl (Oxycodone) 10 mg PO ONETIME ONE Stop: 12/21/17 16:30 Last Admin: 12/21/17 16:36 Dose: 10 mg Oxycodone HCl (Oxycontin) 10 mg PO Q12HR [facility] Last Admin: 12/25/17 08:30 Dose: 10 mg Oxycodone HCl (Oxycodone) 5 mg PO ONETIME ONE Stop: 12/24/17 12:32 Last Admin: 12/24/17 12:40 Dose: 5 mg Pantoprazole Sodium (Protonix) 40 mg PO DAILY [facility] Last Admin: 12/25/17 08:32 Dose: 40 mg Albuterol/Ipratropium 4 Gm Inhalation [place] 1 each INH Q6HR [facility] Prednisone (Prednisone) 40 mg PO WITHBREAKFAST [facility] Last Admin: 12/25/17 07:43 Dose: 40 mg Sodium Chloride (Saline Flush) 10 ml FLUSH ASDIRECTED PRN PRN Reason: Keep Vein Open Last Admin: 12/21/17 12:43 Dose: 10 ml Sodium Chloride (Saline Flush) 2.5 ml FLUSH ASDIRECTED PRN PRN Reason: Keep Vein Open Last Admin: 12/21/17 12:43 Dose: 2.5 ml Tramadol HCl (Ultram) 50 mg PO Q6H PRN PRN Reason: Pain - Exam Quality Assessment: Reports: Supplemental Oxygen (2) General: Reports: Alert, Oriented HEENT: Reports: Pupils Equal, Pupils Reactive, Other (left side of neck masses) Neck: Reports: Supple, Trachea Midline, No JVD, No Thyromegaly Lungs: Reports: Decreased Breath Sounds, Crackles, Rhonchi, Stridor Cardiovascular: Reports: Regular Rate, Regular Rhythm, No Murmurs GI/Abdominal Exam: Normal Bowel Sounds, Soft, Non-Tender Back Exam: Reports: Other ( back deformities ) Extremities: Pedal Edema Skin: Reports: Warm, Dry Neurological: Reports: No New Focal Deficit Psy/Mental Status: Reports: Alert, Normal Affect
== END 2017-12-25 11:45 | disposition home or self-care (01) | DRG 136 ==
LOC: MW.ED 12:21 → MW.MS 14:36 → OBSVTOIN 12-23 07:34 → MW.MS 12-23 09:00
PROVIDERS: ADMIT Internal Medicine; ATTEND Internal Medicine
DX: C34.90 Malignant neoplasm of unspecified part of unspecified bronchus or lung (principal); J18.9 Pneumonia, unspecified organism; J96.91 Respiratory failure, unspecified with hypoxia; J90 Pleural effusion, not elsewhere classified; C77.0 Secondary and unspecified malignant neoplasm of lymph nodes of head, face and neck; M54.9 Dorsalgia, unspecified; M79.89 Other specified soft tissue disorders; F41.9 Anxiety disorder, unspecified; F17.210 Nicotine dependence, cigarettes, uncomplicated; Z88.0 Allergy status to penicillin; Z79.899 Other long term (current) drug therapy
CPT/HCPCS: 36415; 36600; 70470; 70470-26; 71045; 71045-26; 71046; 71046-26; 80048; 80053; 81001; 82803; 83605; 83690; 83735; 83880; 84100; 84484; 85025; 85027; 87040; 87070; 87205; 93005; 93971-26-LT; 93971-LT; 94640; 94667; 94668; 96361; 96365; 96366; 96367; 96372; 96375; 96376; 99285-25; A9270-GY; G0378; J1650; J1940; J1956; J2270; J2405; J2920; J3370; J3490; J7040; J7050; J7620-GY; Q9967